=== PATIENT | female | born 1965 | race Caucasian/White ===

== ENCOUNTER 2024-03-16 09:46 | Outpatient (OUT) | payer OTHER, SELFPAY ==
[2024-03-16 10:06] LABS: Basophils Absolute Auto 0.1 10^3/uL (0.0-0.1); Basophils Percent Auto 0.8 % (0.2-2.0); Eosinophils Absolute Auto 0.2 10^3/uL (0.0-0.7); Eosinophils Percent Auto 3.3 % (0.9-7.0); Hematocrit 40.6 % (36.0-48.0); Hemoglobin 13.7 g/dL (12.0-16.0); Immature Granulocytes Abs Auto 0.01 10^3/uL (0.00-0.03); Immature Granulocytes Pct Auto 0.2 % (0.0-0.5); Lymphocytes Absolute Auto 2.3 10^3/uL (1.2-3.8); Lymphocytes Percent Auto 35.7 % (20.5-60.0); Mean Corpuscular HGB Conc 33.7 g/dL (29.9-35.2); Mean Corpuscular Hemoglobin 30.4 pg (26.7-34.0); Mean Corpuscular Volume 90.2 fL (81.0-99.0); Monocytes Absolute Auto 0.5 10^3/uL (0.3-0.8); Monocytes Percent Auto 8.4 % (1.7-12.0); Neutrophils Absolute Auto 3.3 10^3/uL (1.4-6.5); Neutrophils Percent Auto 51.6 % (43.0-75.0); Platelet Count 249 10^3/uL (150-450); Red Cell Distribution Width 12.2 % (11.0-15.0); White Blood Count 6.3 10^3/uL (4.0-11.0)
== END 2024-03-16 09:47 | disposition home or self-care (01) ==
LOC: LAB 09:50
PROVIDERS: PCP Nurse Practitioner Family; Visit Provider Nurse Practitioner Family
DX: Z13.0 Encounter for screening for diseases of the blood and blood-forming organs and certain disorders involving the immune mechanism (principal)
CPT/HCPCS: 36415; 85025

== ENCOUNTER 2024-03-17 11:06 | Outpatient (OUT) | payer OTHER, SELFPAY ==
[2024-03-17 11:51] LABS: Alanine Aminotransferase 23 U/L (14-59); Albumin Globulin Ratio 0.9; Albumin Level 3.2 g/dL (3.4-5.0); Alkaline Phosphatase 104 U/L (46-116); Anion Gap 8.9; Aspartate Amino Transferase 16 U/L (15-37); BUN Creatinine Ratio 19.1; Bilirubin Total 0.7 mg/dL (0.2-1.0); Calcium 9.2 mg/dL (8.5-10.1); Carbon Dioxide 29.2 mmol/L (21.0-32.0); Chloride 107 mmol/L (98-107); Chol HDL Ratio 4.1; Cholesterol 211 mg/dL (<=200); Estimated GFR (African America >60 (>=60); Estimated GFR (Non-African Ame >60 (>=60); Globulin 3.7 g/dL; Glucose 87 mg/dL (74-106); HDL Cholesterol 51 mg/dL (40-60); Potassium 4.1 mmol/L (3.5-5.1); Sodium 141 mmol/L (136-145); Total Protein 6.9 g/dL (6.4-8.2); Triglycerides 47 mg/dL (<=150); VLDL CHOLESTEROL 9.4 mg/dL
== END 2024-03-17 11:07 | disposition home or self-care (01) ==
LOC: LAB 11:06
PROVIDERS: PCP Nurse Practitioner Family; Visit Provider Nurse Practitioner Family
DX: Z51.81 Encounter for therapeutic drug level monitoring (principal); Z13.228 Encounter for screening for other metabolic disorders; Z13.220 Encounter for screening for lipoid disorders
CPT/HCPCS: 36415; 80053; 80061

== ENCOUNTER 2024-03-24 12:47 | Outpatient (OUT) | payer OTHER, SELFPAY ==
--- NOTE | 2024-03-24 12:49 | MM_ITS ---
Patient Name: SHERRIE FALK MR#: [id number] : 1965 Exam Date: 03/24/2024 Ordering Doctor: ZENAIDA CHAMBERS RADIOLOGY REPORT PROCEDURE: MM TOMOSYNTHESIS SCREENING BI COMPARISON: None. INDICATIONS: screening Calculator Name NCI Breast Cancer Risk Assessment Tool 5 Year Breast Cancer Risk 1.10% Lifetime Breast Cancer Risk 6.20% Personal Breast Cancer No Personal Ovarian Cancer No Treatments None Family Cancers None LOCATION: [facility] BREAST COMPOSITION: There are scattered areas of fibroglandular density. FINDINGS: DIAGNOSTIC CATEGORY 2--BENIGN FINDING: RIGHT BREAST: No significant suspicious finding. Scattered benign-appearing calcifications are present. LEFT BREAST: No significant suspicious finding. Scattered benign-appearing calcifications are present. RECOMMENDATIONS: ROUTINE MAMMOGRAM AND CLINICAL EVALUATION IN 12 MONTHS. PLEASE NOTE: A NORMAL MAMMOGRAM DOES NOT EXCLUDE THE POSSIBILITY OF BREAST CANCER. A CLINICALLY SUSPICIOUS PALPABLE LUMP SHOULD BE BIOPSIED. Dictated by: Jordi Peña M.D. on 04/07/2024 at 13:39 Approved by: Jordi Peña M.D. on 04/07/2024 at 13:42
--- OUTSIDE RECORDS SUMMARY | 2024-03-24 13:05 | XMS_ITS | CCD ---
Author Organization [facility] Care Team Providers Care Advertising Operations Manager Name Role Phone Will Forrester Primary Care Provider [phone] WILL FORRESTER Primary Care Unavailable STEVEN MARTINO Referring Unavailable STEVEN MARTINO Referring Unavailable KOSUZIE, WILL T Primary Care Unavailable MITZY, WILL T Primary Care Unavailable STEVEN MARTINO Admitting Unavailable STEVEN MARTINO Attending Unavailable VIANCA ROLDAN Attending Unavailable MITZY, WILL T Primary Care Unavailable STEVEN MARTINO Referring Unavailable KOEHL, WILL T Primary Care Unavailable Mitzy CHAUDHRY, Will Primary Care Provider Mitzy CHAUDHRY, Will Primary Care Provider Mitzy CHAUDHRY, Will Primary Care Provider [phone] VITA ALMONTE Referring Unavailable KOEH, WILL T Primary Care Unavailable SIM WELLER Referring Unavailable KOEHL, WILL T Primary Care Unavailable Allergies Allergy Classification Reported Allergen(s) Allergy Type Date of Onset Reaction(s) Facility Sulfamethoxazole / Trimethoprim (2 sources) Sulfamethoxazole / Trimethoprim Drug Allergy 01-26-20 [facility] [employer] (7 sources) Sulfamethoxazole / Trimethoprim Drug Allergy 01-26-20 [facility] [employer] Work Phone: (5 sources) Acetaminophen / oxyCODONE Drug Allergy 07-25-20 [employer] Work Phone: (1 source) Sulfamethoxazole Drug Allergy 03-13-20 24 [facility] (1 source) Trimethoprim Drug Allergy 03-13-20 [facility] NEGATED: Highlighted row has been ruled out! (5 sources) Other Propensity to adverse reactions 07-25-20 [facility] Medications Current Medications Medication Drug Class(es) Dates Sig (Normalized) Sig (Original) Acetaminophen / HYDROcodone (1 source) Opioid Agonist Start: 02-09-2021 End: 02-09-2021 HYDROcodone-aceta minophen (NORCO) 5-325 MG per tablet 1 tablet acetaminophen 325 mg / oxyCODONE hydrochloride 5 mg oral tablet (6 sources) Opioid Agonist take 1 tablet by mouth twice daily as needed for pain oxyCODONE-acetami nophen (PERCOCET) 5-325 MG per tablet Take 1 tablet by mouth 2 times daily as needed for Pain. 0 Active benzonatate 200 mg oral capsule (2 sources) Non-narcotic Antitussive Start: 09-30-2022 End: 10-07-2022 take 1 capsule by mouth three times daily as needed for cough benzonatate (TESSALON) 200 MG capsule Indications: Viral URI Take 1 capsule by mouth 3 times daily as needed for Cough 30 capsule 0 09/30/2022 10/07/2022 Active Start: 12-03-2021 End: 12-10-2021 take 1 capsule by mouth three times daily as needed for cough benzonatate (TESSALON) 200 MG capsule Indications: Acute URI Take 1 capsule by mouth 3 times daily as needed for Cough 30 capsule 0 12/03/2021 12/10/2021 Active brompheniramine maleate 0.4 mg/ml / dextromethorphan hydrobromide 2 mg/ml / pseudoephedrine hydrochloride 6 mg/ml oral solution (1 source) alpha-Adrenergic Agonist, Uncompetitive W-dtjgga-F-aspartate Receptor Antagonist, Sigma-1 Agonist Start: 03-26-2022 End: 03-31-2022 take 10 mL by mouth four times daily as needed for cough rfcmcfkdqlnhses-dpyzszklbatulsr-QG 2-30-10 MG/5ML syrup Indications: Cough Take 10 mLs by mouth 4 times daily as needed for Cough 200 mL 0 03/26/2022 03/31/2022 Active calcium chloride 0.0014 meq/ml / potassium chloride 0.004 meq/ml / sodium chloride 0.103 meq/ml / sodium lactate 0.028 meq/ml injectable solution (1 source) Start: 02-10-2021 lactated ringers infusion Start: 02-10-2021 lactated ringe rs infusion cefdinir 300 mg oral capsule (1 source) Cephalosporin Antibacterial Start: 03-13-2024 take 300 mg by mouth twice daily Cefdinir Active 300 MG PO Twice daily 14 March 13, 2024 12:00am cephalexin 500 mg oral capsule (3 sources) Cephalosporin Antibacterial Start: 02-18-2023 End: 02-23-2023 take 1 capsule by mouth twice daily cephALEXin (KEFLEX) 500 MG capsule Indications: UTI symptoms Take 1 capsule by mouth 2 times daily for 5 days 10 capsule 0 02/18/2023 02/23/2023 Active Start: 04-22-2022 End: 04-29-2022 take 1 capsule by mouth twice daily cephALEXin (KEFLEX) 500 MG capsule Indications: Acute cystitis without hematuria Take 1 capsule by mouth 2 times daily for 7 days 14 capsule 0 04/22/2022 04/29/2022 Active Start: 03-26-2022 End: 04-05-2022 take 1 capsule by mouth twice daily cephALEXin (KEFLEX) 500 MG capsule Indications: Acute bacterial sinusitis Take 1 capsule by mouth 2 times daily for 10 days 20 capsule 0 03/26/2022 04/05/2022 Active ciclopirox 80 mg/ml topical solution (1 source) Start: 03-13-2024 Ciclopirox (Ciclodan) 8 % solution Active 1 APPLIC TOPICAL Daily at bedtime 6.6 March 13, 2024 12:00am cyclobenzaprine hydrochloride 10 mg oral tablet (6 sources) Muscle Relaxant take 5 mg by mouth twice daily as needed for muscle spasms cyclobenzaprine (FLEXERIL) 10 MG tablet Take 5 mg by mouth 2 times daily as needed for Muscle spasms 0 Active 2 ml fentaNYL 0.05 mg/ml injection (2 sources) Opioid Agonist Start: 02-09-2021 fentaNYL (SUBLIMAZE) injection 25 mcg Start: 02-09-2021 fentaNYL (SUBL IMAZE) injection 50 mcg 10 ml lidocaine hydrochloride 10 mg/ml injection (1 source) Antiarrhythmic, Amide Local Anesthetic Start: 02-10-2021 End: 02-10-2021 lidocaine PF 1 % injection 1 mL ondansetron 4 mg oral tablet (9 sources) Serotonin-3 Receptor Antagonist Start: 04-22-2022 End: 04-27-2022 take 1 tablet by mouth every eight hours as needed for nausea ondansetron (ZOFRAN ODT) 4 MG disintegrating tablet Indications: Nausea Take 1 tablet by mouth every 8 hours as needed for Nausea or Vomiting 15 tablet 0 04/22/2022 04/27/2022 Active Start: 12-03-2021 take 1 tablet by ian th three times daily as needed for nausea ondansetron (ZOFRAN) 4 MG tablet Indications: Viral URI Take 1 tablet by mouth 3 times daily as needed for Nausea or Vomiting 15 tablet 0 09/30/2022 Active Start: 02-09-2021 End: 02-09-2021 ondansetron (ZOFRAN) injecti on 4 mg predniSONE 20 mg oral tablet (1 source) Start: 12-03-2021 End: 12-08-2021 take 2 tablets by mouth once daily predniSONE (DELTASONE) 20 MG tablet Indications: Acute URI Take 2 tablets by mouth daily for 5 days 10 tablet 0 12/03/2021 12/08/2021 Active 3 ml sodium chloride 9 mg/ml injection (2 sources) Start: 02-09-2021 sodium chlorid e flush 0.9 % injection 10 mL terbinafine 250 mg oral tablet (6 sources) Allylamine Antifungal Start: 01-22-2021 take 1 tablet by mouth once daily terbinafine (LAMISIL) 250 MG tablet Take 1 tablet by mouth daily 0 01/22/2021 Active Completed/Discontinued Medications Medication Drug Class(es) Dates Sig (Normalized) Sig (Original) apixaban 5 mg oral tablet (7 sources) Factor Xa Inhibitor Start: 03-23-2021 End: 03-23-2021 apixaban (ELIQUIS) tablet 10 mg Start: 03-23-2021 apixaban start er pack (ELIQUIS DVT/PE STARTER PACK) 5 MG TBPK tablet Take 1 tablet by mouth See Admin Instructions 74 tablet 0 03/23/2021 Active ibuprofen 200 mg oral tablet (1 source) Nonsteroidal Anti-inflammatory Drug Start: 02-09-2021 End: 02-09-2021 ibuprofen (ADVIL;MOTRIN) tablet 400 mg Problems Active Problems Problem Classification Problem Date Documented Date Episodic/Chronic Genitourinary symptoms and ill-defined conditions (1 source) Increased frequency of urination; Translations: [Frequency of micturition] Episodic Headache; including migraine (2 sources) Migraine without aura, not refractory ; Translations: [Migraine without aura, not intractable, without status migrainosus] Onset: 09-09-2017 09-30-2022 Chronic Mycoses (2 sources) Onychomycosis; Translations: [Tinea unguium] 03-13-2024 Episodic Other aftercare (5 sources) Patient encounter status; Translations: [Encounter for therapeutic drug level monitoring] 03-13-2024 Episodic Other aftercare (1 source) Encounter for therapeutic drug level monitoring; Translations: [Encounter for therapeutic drug monitoring] 03-13-2024 Episodic Other female genital disorders (1 source) Vaginal discharge; Translations: [Other specified noninflammatory disorders of vagina] Episodic Other nutritional; endocrine; and metabolic disorders (2 sources) Obesity; Translations: [Other obesity due to excess calories] Onset: 09-30-2022 09-30-2022 Chronic Other screening for suspected conditions (not mental disorders or infectious disease) (4 sources) Encounter for other screening for malignant neoplasm of breast; Translations: [Breast screening, unspecified] 03-13-2024 Episodic Other upper respiratory infections (2 sources) Maxillary sinusitis; Translations: [Chronic maxillary sinusitis] 03-13-2024 Chronic Spondylosis; intervertebral disc disorders; other back problems (4 sources) Degeneration of lumbar intervertebral disc; Translations: [Other intervertebral disc degeneration, lumbar region] Onset: 09-30-2022 09-30-2022 Chronic Spondylosis; intervertebral disc disorders; other back problems (2 sources) Chronic back pain ; Translations: [Dorsalgia, unspecified] 03-13-2024 Episodic Unclassified (1 source) Patient encounter status; Translations: [Preop testing] Urinary tract infections (3 sources) Acute cystitis; Translations: [Acute cystitis without hematuria] Episodic Varicose veins of lower extremity (2 sources) Pain co-occurrent and due to varicose veins of left leg; Translations: [Varicose veins of left lower extremity with pain] Onset: 02-09-2021 02-09-2021 Past or Other Problems Problem Classification Problem Date Documented Da te Episodic/Chronic Calculus of urinary tract (2 sources) Kidney stone; Translations: [Calculus of kidney] Onset: 05-16-2018 09-30-2022 Episodic Conditions associated with dizziness or vertigo (2 sources) Benign paroxysmal positional vertigo; Translations: [Benign paroxysmal vertigo, unspecified ear] Onset: 07-26-2017 09-30-2022 Episodic Other diseases of veins and lymphatics (10 sources) Venous insufficiency of leg; Translations: [Venous insufficiency (chronic) (peripheral)] Onset: 02-09-2021 02-09-2021 Episodic Other female genital disorders (1 source) Other specified noninflammatory disorders of vagina; Translations: [Other specified noninflammatory disorders of vagina] Onset: 02-18-2023 Episodic Other skin disorders (2 sources) Callosity; Translations: [Corns and callosities] Onset: 12-24-2016 09-30-2022 Episodic Other skin disorders (2 sources) Disorder of skin and/or subcutaneous tissue; Translations: [Disorder of the skin and subcutaneous tissue, unspecified] Onset: 01-25-2016 09-30-2022 Episodic Other upper respiratory infections (3 sources) Acute upper respiratory infection; Translations: [Acute upper respiratory infection, unspecified] Onset: 09-30-2022 Episodic Phlebitis; thrombophlebitis and thromboembolism (3 sources) Acute deep venous thrombosis of popliteal vein of left leg; Translations: [Acute embolism and thrombosis of left popliteal vein] Onset: 02-20-2016 Episodic Skin and subcutaneous tissue infections (4 sources) Cellulitis and abscess of lower leg; Translations: [Cutaneous abscess of limb, unspecified] Onset: 10-14-2017 09-30-2022 Episodic Varicose veins of lower extremity (8 sources) Pain co-occurrent and due to varicose veins of left leg; Translations: [Varicose veins of left lower extremity with pain] Onset: 02-09-2021 02-09-2021 Episodic Results Test Name Value Interpretation Reference Range Facil ity Cult,Urineon 02-20-2023 Cult,Urine Specimen Description .CLEAN CATCH URINE Culture NO SIGNIFICANT GROWTH Report Status FINAL 02/20/[address] [facility] Comment on above: Performed By: #### U #### [facility] [employer] [address] [place] [address] [id number] Entry Processor: Crow Alford MD Vaginitis DNA Probeon 2022 Tiffanie Negative Normal NEG [facility] Comment on above: Result Comment: for Tiffanie sp. Method of testing is a DNA probe intended for detection and identification of Tiffanie species, Gardnerella vaginalis, and Trichomonas vaginalis nucleic acid in vaginal fluid specimens from patients with symptoms of vaginitis/vaginosis. Performed By: #### V AGP #### [address] [address] Entry Processor: Crow Alford MD Gardnerella Negative Normal NEG [facility] Comment on above: Result Comment: for Gardnerella vaginalis Performed By: #### V AGP #### [address] [address] Entry Processor: Crow Alford MD Trichomonas Negative Normal NEG [facility] Comment on above: Result Comment: for Trichomonas Vaginalis Performed By: #### V AGP #### [address] [address] Entry Processor: Crow Alford MD Vaginitis DNA Probeon 2022 Source .VAGINAL SWAB Normal [facility] Comment on above: Performed By: #### V AGP #### [address] [address] Entry Processor: Crow Alford MD [id number] 10-01-2022 SARS-CoV-2 (COVID-19) RNA FARHAT+probe Ql (Unsp spec) Normal [facility] Comment on above: Performed By: #### C OVID #### [address] [address] Entry Processor: Crow Alford MD SARS-CoV-2 (COVID-19) RNA FARHAT+probe Ql (Unsp spec) Not detected Normal NOTDET [facility] Comment on above: Result Comment: The specimen is NEGATIVE for SARS-CoV-2, the novel coronavirus associated with COVID-19. A negative result does not rule out COVID-19. Mathew SARS-CoV-2 for use on the [employer]w [employer]/8800 Systems is a real-time RT-PCR test intended for the qualitative detection of nucleic acids from SARS-CoV-2 in clinician-collected nasal, nasopharyngeal, and oropharyngeal swab specimens from individuals who meet COVID-19 clinical and/or epidemiological criteria. Mathew SARS-CoV-2 is for use only under Emergency Use Authorization (EUA) in laboratories certified under Clinical Laboratory Improvement Amendments of 1988 (CLIA), 42 U.S.C. ?263a, that meet requirements to perform high or moderate complexity tests. An individual without symptoms of COVID-19 and who is not shedding SARS-CoV-2 virus would expect to have a negative (not detected) result in this assay. Fact sheet for Healthcare Providers: https://www.fda.gov/media/114892/download Fact sheet for Patients: https://www.fda.gov/media/017198/download METHODOLOGY: RT-PCR Performed By: #### C OVID #### [address] [address] Entry Processor: Crow Alford MD [id number] 09-30-2022 SARS-CoV-2 (COVID-19) RNA FARHAT+probe Ql (Unsp spec) .NASOPHARYNGEAL SWAB Normal [facility] Comment on above: Performed By: #### C OVID #### [address] [address] Entry Processor: Crow Alford MD VL Lower Extremity Venous Le ftOrdered By: Steven Martino on 03-23-2021 Rashaun, Mhpn Incoming Cardio Results From [facility] - 03/23/2021 7:12 PM EDT [facility] Vascular Lower Extremities DVT Study Procedure Patient Name TABBERT Date of Study 03/23/2021 JESSICA L Date of 1965 Gender Female Age 55 year(s) Race Room Number OPT Corporate ID # [id number] Patient MR # [id number] Video Arcade Manager Kimberly Conklin Interpreting Physician Steven Martino Referring Nurse Referring Physician STEVEN MARTINO, * Practitioner Procedure Type of Study: Veins: Lower Extremities DVT Study, Venous Scan Lower Left. Indications for Study:Post-op venous closure. Patient Status:Out Patient. Technical Quality:Good visualization. - Critical Result:Called Dr. Martino's office: patient taken to the ER.. Conclusions Summary Acute deep vein thrombosis of the left leg involving the popliteal veins. Successful venous closure of the great saphenous vein of the left leg. Signature Electronically signed by Steven Martino([facility] physician) on 03/23/2021 07:11 PM Left Impression: The left popliteal vein is non compressible with no flow noted. F/U : Ablation of the left greater saphenous vein. The common femoral, femoral, tibials and small saphenous veins are compressible with normal doppler responses. Velocities are measured in cm/s ; Diameters are measured in cm Left Lower Extremities DVT Study Measurements Left 2D Measurements + +------ ----+ +- --------- + !Location !Visualized!Compressib ility!Thrombosis! + +------ ----+ +- --------- + !Common Femoral !Yes !Yes !None ! + +------ ----+ +- --------- + !Prox Femoral !Yes !Yes !None ! + +------ ----+ +- --------- + !Mid Femoral !Yes !Yes !None ! + +------ ----+ +- --------- + !Dist Femoral !Yes !Yes !None ! + +------ ----+ +- --------- + !Deep Femoral !Yes !Yes !None ! + +------ ----+ +- --------- + !Popliteal !Yes !No !Acute ! + +------ ----+ +- --------- + !Sapheno Femoral Junction !Yes !Yes !None ! + +------ ----+ +- --------- + !PTV !Yes !Yes !None ! + +------ ----+ +- --------- + !Peroneal !Yes !Yes !None ! + +------ ----+ +- --------- + !Gastroc !Yes !Yes !None ! + +------ ----+ +- --------- + !SSV !Yes !Yes !None ! + +------ ----+ +- --------- + Left Doppler Measurements + ------+------+------+- --------- + !Location !Signal!Reflux!Reflux (msec) ! + ------+------+------+- --------- + !Common Femoral !Phasic! ! ! + ------+------+------+- --------- + !Prox Femoral !Phasic! ! ! + ------+------+------+- --------- + !Popliteal !Absent! ! ! + ------+------+------+- --------- + [employer] Work Phone: OPERATIVE REPORTon OPERATIVE REPORT [address] [phone] OPERATIVE REPORT PATIENT NAME: JESSICA COTTRELL : 1965 [facility] REC NO: [id number] ROOM: ACCOUNT NO: [id number] ADMIT DATE: 02/09/2021 PROVIDER: Steven Martino MD DATE OF PROCEDURE: 02/09/2021 PREOPERATIVE DIAGNOSES: 1. Symptomatic painful left lower extremity varicose veins with associated thrombophlebitis. 2. Left lower extremity incompetent perforators. 3. Left greater saphenous vein incompetence. POSTOPERATIVE DIAGNOSES: 1. Symptomatic painful left lower extremity varicose veins with associated thrombophlebitis. 2. Left lower extremity incompetent perforators. 3. Left greater saphenous vein incompetence. PROCEDURE: 1. Endovenous ablation of left greater saphenous vein with [employer] ClosureFast system (12 cycles). 2. Ligation of left lower extremity incompetent perforators. 3. Ultrasound imaging, left greater saphenous vein. SURGEON: Steven Martino MD ANESTHESIA: MAC. ESTIMATED BLOOD LOSS: Minimal. COMPLICATIONS: None. OPERATIVE INDICATIONS: The patient is a 55-year-old white female who presents with venous varicosities on the left leg and previous episodes of superficial thrombophlebitis. Venous duplex demonstrates significant reflux involving the left greater saphenous vein along with incompetent perforators along the lower leg and medial calf region. At this time, she is being taken to the operating room for elective endovenous ablation of the left greater saphenous vein with ligation of incompetent perforators. TECHNIQUE: After informed consent had been obtained, the patient was brought to the operating room and placed in supine position and left leg was prepped and draped in the usual sterile fashion. Ultrasound imaging was carried out of the greater saphenous vein from the saphenofemoral junction to the ankle level. This demonstrated patency of the greater saphenous vein. The lower leg was anesthetized with 1% Xylocaine. Using micropuncture technique, the greater saphenous vein was isolated and a 7-Lithuanian sheath was placed. Med[employer]onic ClosureFast catheter was advanced to the saphenofemoral junction and withdrawn approximately 4-5 cm. Tumescent anesthetic was then injected along the course of the greater saphenous vein under direct ultrasound imaging. Endovenous ablation of the greater saphenous vein was then carried out using the Medtronic ClosureFast system for a total of 12 cycles. Post imaging demonstrated successful closure of the greater saphenous vein with preserved patency of the saphenofemoral junction and deep venous system. Next, areas of previously marked incompetent perforators were anesthetized with 1% Xylocaine and small incisions were made. Multiple perforators were ligated and varicosities excised with the stumps being tied with a 3-0 Vicryl and divided. Once all the perforators had been ligated and varicosities removed, the wounds were irrigated with normal saline and the skin incisions reapproximated using interrupted 4-0 Monocryl subcuticular suture. Mastisol and Steri-Strips were applied followed by a sterile Kerlix and Coban dressing. The patient tolerated the procedure well and was transferred to the recovery room in satisfactory condition. Sponge and instrument counts were correct at the conclusion of the operation. A total of 5 phlebectomy sites were present. STEVEN MARTINO MD TORREY/[email or web address] Doc#: [id number] CC: Steven Matrino MD Family Physician Normal [facility] [id number] 02-06-2021 SARS-CoV-2 (COVID-19) RNA FARHAT+probe Ql (Unsp spec) Normal [facility] Comment on above: Performed By: #### C OVID #### [facility] [address] [place] [address] Entry Processor: Raciel Osullivan MD [facility] [employer] [facility] [place] [address] Entry Processor: Crow Alford MD SARS-CoV-2 (COVID-19) RNA FARHAT+probe Ql (Unsp spec) Not detected Normal [facility] Comment on above: Result Comment: The specimen is NEGATIVE for SARS-CoV-2, the novel coronavirus associated with COVID-19. A negative result does not rule out COVID-19. Mathew SARS-CoV-2 for use on the [employer]/8800 Systems is a real-time RT-PCR test intended for the qualitative detection of nucleic acids from SARS-CoV-2 in clinician-collected nasal, nasopharyngeal, and oropharyngeal swab specimens from individuals who meet COVID-19 clinical and/or epidemiological criteria. Mathew SARS-CoV-2 is for use only under Emergency Use Authorization (EUA) in laboratories certified under Clinical Laboratory Improvement Amendments of 1988 (CLIA), 42 U.S.C. ?263a, that meet requirements to perform high or moderate complexity tests. An individual without symptoms of COVID-19 and who is not shedding SARS-CoV-2 virus would expect to have a negative (not detected) result in this assay. Fact sheet for Healthcare Providers: https://www.fda.gov/media/771925/download Fact sheet for Patients: https://www.fda.gov/media/604110/download METHODOLOGY: RT-PCR Performed By: #### C OVID #### [facility] [address] [place], [place] [id number] Entry Processor: Raciel Osullivan MD [address] [id number] Entry Processor: Crow Alford MD [id number] 02-01-2021 SARS-CoV-2 (COVID-19) RNA FARHAT+probe Ql (Unsp spec) .NASOPHARYNGEAL SWAB Normal [facility] Comment on above: Performed By: #### C OVID #### [facility] [address] [place], [place] [id number] Entry Processor: Raciel Osullivan MD [address] [address] Entry Processor: Crow Alford MD Basic Metabolic Profon 01-25 (cont.) [facility] Comment on above: Result Comment: Aver age GFR for 50-59 years old: 93 mL/min/1.73sq m Chronic Kidney Disease: <60 mL/min/1.73sq m Kidney failure: <15 mL/min/1.73sq m eGFR calculated using average adult body mass. Additional eGFR calculator available at: http://www.sougou/multiple_crcl_2012.htm Performed By: #### MIGUEL ÁNGEL ORTIZ, PT #### [facility] [address] [facility] [place] [address] Entry Processor: Raciel Osullivan MD Anion gap [Moles/Vol] 8 mmol/L Low 9-17 [facility] Comment on above: Performed By: #### MIGUEL ÁNGEL ORTIZ, PT #### [facility] [address] [facility] [address] Entry Processor: Raciel Osullivan MD BUN/CRE Ratio 13 Normal 9-20 [facility] Comment on above: Performed By: #### MIGUEL ÁNGEL ORTIZ, PT #### [facility] [address] [facility] [address] Entry Processor: Raciel Osullivan MD Calcium [Mass/Vol] 9.3 mg/dL Normal 8.6-10.4 [facility] Comment on above: Performed By: #### MIGUEL ÁNGEL ORTIZ, PT #### [facility] [address] [facility] [address] Entry Processor: Raciel Osullivan MD Chloride [Moles/Vol] 105 mmol/L Normal 98-107 [facility] Comment on above: Performed By: #### MIGUEL ÁNGEL ORTIZ, PT #### [facility] [address] [facility] [address] Entry Processor: Raciel Osullivan MD CO2 [Moles/Vol] 30 mmol/L Normal 20-31 [facility] Comment on above: Performed By: #### C BETO BMP, PT #### [facility] [address] [place] [address] Entry Processor: Raciel Osullivan MD Creatinine [Mass/Vol] 0.83 mg/dL Normal 0.50-0.90 [facility] Comment on above: Performed By: #### C BETO BMP, PT #### [facility] [address] [place] [address] Entry Processor: Raciel Osullivan MD GFR, Amer >60 Normal >60 [facility] Comment on above: Performed By: #### C MIGUEL ÁNGEL PÉREZ, PT #### [facility] [address] [place] [address] Entry Processor: Raciel Osullivan MD GFR,non Amer >60 Normal >60 [facility] Comment on above: Performed By: #### C BETO BMP, PT #### [facility] [address] [facility] [place] [address] Entry Processor: Raciel Osullivan MD Glucose [Mass/Vol] 89 mg/dL Normal 70-99 [facility] Comment on above: Performed By: #### C MIGUEL ÁNGEL PÉREZ, PT #### [facility] [facility] [place] [address] Entry Processor: Raciel Osullivan MD Potassium [Moles/Vol] 5.0 mmol/L Normal 3.7-5.3 [facility] Comment on above: Performed By: #### C MIGUEL ÁNGEL PÉREZ, PT #### [facility] [address] [place] [address] Entry Processor: Raciel Osullivan MD Sodium [Moles/Vol] 143 mmol/L Normal 135-144 [facility] Comment on above: Performed By: #### C MIGUEL ÁNGEL PÉREZ, PT #### [facility] [address] [place] [address] Entry Processor: Raciel Osullivan MD Urea nitrogen [Mass/Vol] 11 mg/dL Normal 6-20 [facility] Comment on above: Performed By: #### C MIGUEL ÁNGEL PÉREZ, PT #### [facility] [address] [place] [address] Entry Processor: Raciel Osullivan MD Staging: NOT REPORTED Normal [facility] Comment on above: Performed By: #### C MIGUEL ÁNGEL PÉREZ, PT #### [facility] [address] [place] [address] Entry Processor: Raciel Osullivan MD CBCon 01-25-2021 Erythrocyte distribution width (RBC) [Ratio] 12.6 % Normal 11.8-14.4 [facility] Comment on above: Performed By: #### C MIGUEL ÁNGEL PÉREZ, PT #### [facility] [address] [place] [address] Entry Processor: Raciel Osullivan MD Hematocrit (Bld) [Volume fraction] 43.1 % Normal 36.3-47.1 [facility] Comment on above: Performed By: #### C MIGUEL ÁNGEL PÉREZ, PT #### [facility] [address] [facility] [place] [address] Entry Processor: Raciel Osullivan MD Hemoglobin (Bld) [Mass/Vol] 14.2 g/dL Normal 11.9-15.1 [facility] Comment on above: Performed By: #### C MIGUEL ÁNGEL PÉREZ, PT #### [facility] [place] [address] Entry Processor: Raciel Osullivan MD MCH (RBC) [Entitic mass] 30.5 pg Normal 25.2-33.5 [facility] Comment on above: Performed By: #### C MIGUEL ÁNGEL PÉREZ, PT #### [facility] [address] [place] [address] Entry Processor: Raciel Osullivan MD MCHC (RBC) [Mass/Vol] 32.9 g/dL Normal 28.4-34.8 [facility] Comment on above: Performed By: #### C MIGUEL ÁNGEL PÉREZ, PT #### [facility] [place] [address] Entry Processor: Raciel Osullivan MD MCV (RBC) [Entitic vol] 92.5 fL Normal 82.6-102.9 [facility] Comment on above: Performed By: #### C MIGUEL ÁNGEL PÉREZ, PT #### [facility] [address] [place], [place] [address]ia [facility] [place] [address] Entry Processor: Raciel Osullivan MD NRBC Automated 0.0 per 100 WBC Normal 0.0 [facility] Comment on above: Performed By: #### C MIGUEL ÁNGEL PÉREZ, PT #### [facility] [address] [place], [place] [address]ia [facility] [place] [address] Entry Processor: Raciel Osullivan MD Platelet mean volume (Bld) [Entitic vol] 9.4 fL Normal 8.1-13.5 [facility] Comment on above: Performed By: #### C MIGUEL ÁNGEL PÉREZ, PT #### [facility] [facility] [place] [address] Entry Processor: Raciel Osullivan MD Platelets (Bld) [#/Vol] 244 10*3/uL Normal 138-453 [facility] Comment on above: Performed By: #### C MIGUEL ÁNGEL PÉREZ, PT #### [facility] [place] [address] Entry Processor: Raciel Osullivan MD RBC (Bld) [#/Vol] 4.66 10*6/uL Normal 3.95-5.11 [facility] Comment on above: Performed By: #### C BETO BMP, PT #### [facility] [address] [place] [address] Entry Processor: Raciel Osullivan MD WBC (Bld) [#/Vol] 5.5 10*3/uL Normal 3.5-11.3 [facility] Comment on above: Performed By: #### C BETO BMP, PT #### [facility] [address] [place] [address] Entry Processor: Raciel Osullivan MD PTon 01-25-2021 INR Coag (PPP) [Relative time] 1.0 {INR} Normal [facility] Comment on above: Result Comment: Non-therapeutic Range: INR = 0.9-1.2 Therapeutic Range: Moderate Anticoagulant Intensity: INR = 2.0-3.0 High Anticoagulant Intensity: INR = 2.5-3.5 Performed By: #### C MIGUEL ÁNGEL PÉREZ, PT #### [facility] [address] [place] [address] Entry Processor: Raciel Osullivan MD PT Coag (PPP) [Time] 12.6 s Normal 11.5-14.2 [facility] Comment on above: Performed By: #### C BETO BMP, PT #### [facility] [address] [place] [address] Entry Processor: Raciel Osullivan MD Vital Signs Date Time Vital Sign Value Performing Clinician Facility 03-13-2024 09:57-0400 Body height 167.64 cm [facility] 03-13-2024 09:57-0400 Body mass index (BMI) [Ratio] 33.9 kg/m2 [facility] 03-13-2024 09:57-0400 Body weight 95.25 kg [facility] 03-13-2024 09:57-0400 Diastolic blood pressure 80 mm[Hg] [facility] 03-13-2024 09:57-0400 Heart rate 74 /min [facility] 03-13-2024 09:57-0400 SaO2% (BldA) [Mass fraction] 98 % [facility] 03-13-2024 09:57-0400 Systolic blood pressure 116 mm[Hg] [facility] 03-23-2021 16:24-0400 Body height 167.6 cm Vianca Roldan MD Work Phone: [employer] Work Phone: 03-23-2021 16:24-0400 Body mass index (BMI) [Ratio] 32.28 kg/m2 Vianca Roldan MD Work Phone: [employer] Work Phone: 03-23-2021 16:24-0400 Body temperature 98.29 [degF] Vianca Roldan MD Work Phone: [employer] Work Phone: 03-23-2021 16:24-0400 Body weight 90.72 kg Vianca Roldan MD Work Phone: [employer] Work Phone: 03-23-2021 16:24-0400 Diastolic blood pressure 74 mm[Hg] Vianca Roldan MD Work Phone: [employer] Work Phone: 03-23-2021 16:24-0400 Heart rate 86 /min Vianca Roldan MD Work Phone: [employer] Work Phone: 03-23-2021 16:24-0400 Respiratory rate 16 /min Vianca Roldan MD Work Phone: [employer] Work Phone: 03-23-2021 16:24-0400 SaO2% (BldA) [Mass fraction] 98 % Vianca Roldan MD Work Phone: [facility] Work Phone: 03-23-2021 16:24-0400 Systolic blood pressure 140 mm[Hg] Vianca Roldan MD Work Phone: [facility] Work Phone: 02-09-2021 12:30-0400 Body Temperature 98.29 [degF] Steven Martino [facility] Work Phone: 02-09-2021 12:30-0400 BP Diastolic 69 mm[Hg] Steven Martino [facility] Work Phone: 02-09-2021 12:30-0400 BP Systolic 121 mm[Hg] Steven Martino [facility] Work Phone: 02-09-2021 12:30-0400 Pulse (Heart Rate) 56 /min Steven Martino [facility] Work Phone: 02-09-2021 12:30-0400 [facility]ulse [facility] 99 [facility] 02-09-2021 12:30-0400 Respiratory Rate 16 /min Steven Martino [facility] Work Phone: 02-09-2021 07:45-0400 BMI (Body Mass Index) 32.44 kg/m2 [facility] Work Phone: 02-09-2021 07:45-0400 Body [facility].17 [facility]: 02-09-2021 07:45-0400 Height 167.6 [facility]: Encounters Encounter Date Encounter Type Care Provider Facility Start: 03-13-2024 End: 03-13-2024 ambulatory [facility] Work Phone: Start: 03-13-2024 End: 03-13-2024 Patient encounter procedure [facility] Physician [facility] Work Phone: Start: 02-18-2023 End: 02-19-2023 ambulatory VITA ALMONTE [facility] Start: 02-18-2023 End: 02-18-2023 Subsequent hospital visit by physician Will Forrester MD Work Phone: [facility] Comment on above: Vaginal discharge Start: 09-30-2022 End: 10-01-2022 ambulatory SIM WELLER [facility] Start: 09-30-2022 End: 09-30-2022 Subsequent hospital visit by physician Will Forrester MD Work Phone: [facility] Comment on above: Viral URI Start: 04-22-2022 End: 04-22-2022 Subsequent hospital visit by physician Will Forrester MD Work Phone: [facility] Comment on above: Acute cystitis witho ut hematuria Start: 03-26-2022 End: 03-26-2022 Subsequent hospital visit by physician Will Forrester MD Work Phone: [facility] Comment on above: Frequent urination Start: 12-03-2021 End: 12-03-2021 Subsequent hospital visit by physician Will Forrester MD Work Phone: [facility] Comment on above: Acute URI Start: 03-23-2021 End: 03-23-2021 Emergency department patient visit VIANCA ROLDAN [facility] Start: 03-23-2021 End: 03-23-2021 ambulatory WILL FORRESTER [facility] Start: 03-23-2021 End: 03-23-2021 Emergency department patient visit Vianca Roldan MD Work Phone: [facility] Comment on above: Acute deep vein thro mbosis (DVT) of popliteal vein of left lower extremity (HCC) (Primary Dx) Start: 03-23-2021 End: 03-23-2021 Subsequent hospital visit by physician [facility] Comment on above: Venous insufficiency of left leg (Primary Dx); Varicose veins of lower extremity with pain, left Start: 02-09-2021 End: 02-09-2021 ambulatory WILL FORRESTER [facility] Start: 02-09-2021 End: 02-09-2021 Subsequent hospital visit by physician Steven Martino Work Phone: [facility] Start: 02-05-2021 End: 02-06-2021 ambulatory [facility] Start: 02-05-2021 End: 02-05-2021 Subsequent hospital visit by physician Juice Covid Screening Schedule [facility] Comment on above: Preop testing (Prima ry Dx) Start: 01-25-2021 End: 01-30-2021 ambulatory [facility] Procedures Date Procedure Procedure Detail Performing Clinician Start: 03-23-2021 Dup-scan xtr veins unilateral/limited study Steven Martino MD Work Phone: Plan of Treatment Date Care Activity Detail Author Start: 10-17-2027 DTaP/Tdap/Td vaccine (2 - Td or Tdap) DTaP/Tdap/Td vaccine (2 - Td or Tdap) [facility] Start: 10-17-2027 DTaP/Tdap/Td vaccine (2 - Td) DTaP/Tdap/Td vaccine (2 - Td) [facility] Work Phone: Start: 06-18-2023 Influenza vaccination Flu vacc ine (Season Ended) [facility] Start: 12-03-2022 Depression Screen Depression Screen [facility] Start: 07-19-2022 Influenza vaccination Flu vacc ine (Season Ended) [facility] Start: 06-18-2022 Influenza vaccination Flu vaccine (# 1) [facility] Start: 10-02-2021 Screening for malign ant neoplasm of breast Breast cancer screen [facility] Start: 07-19-2021 Influenza vaccination [facility] [employer] Start: 02-09-2021 End: 02-09-2021 Hospital Encounter [facility] Comment on above: LEFT GREATER SAPHENO US VEIN ABLATION RADIOFREQUENCY ENDOSCOPIC Start: 01-31-2021 End: 01-31-2022 COVID-19 COVID-19 Lab Routine Preop testing Expected: 01/31/2021, Expires: 01/31/2022 [employer] Phone: Comment on above: Expected: 01/31/2021 , Expires: 01/31/2022 Start: 01-24-2021 Lipid panel Lipids [facility] [employer] Start: 07-19-2020 Influenza vaccination Flu vaccine (# 1) [employer] Phone: Start: 2014 Screening for malign ant neoplasm of breast Breast cancer screen [facility] [employer] Start: 2014 Screening for malign ant neoplasm of colon Colon cancer screen colonoscopy [employer] Phone: Start: 2014 Shingles Vaccine (1 of 2) Box gles Vaccine (1 of 2) [facility] [employer] Start: 2009 Screening for malign ant neoplasm of colon [facility] [employer] Start: 2004 Lipid panel [facility] Start: 1985 Screening for malign ant neoplasm of cervix Cervical cancer screen [employer] Phone: Start: 1982 Hepatitis C screening Hepatitis C [facility] Start: 1980 COVID-19 Vaccine (1) COVID-19 Vaccin e (1) [facility] [employer] Phone: Start: 1979 HIV screening HIV screen [facility] Start: 1976 Depression Screen Depression Screen [facility] Start: 1969 COVID-19 Vaccine (1) COVID-19 Vaccin e (1) [facility] [employer] Start: 1964 COVID-19 Vaccine (#1) COVID-19 Vacci ne (#1) [facility] Start: 1964 Hepatitis C screening Hepatitis C [facility] Comprehensive metabo lic 2000 panel - Serum or Plasma [facility] End: 02-01-2021 COVID-19 COVID-19 Lab Routine Preop testing 1 Occurrences starting 02/01/2021 until 02/01/2021 [employer] Phone: Comment on above: 1 Occurrences starti ng 02/01/2021 until 02/01/2021 COVID-19 COVID-19 Lab Rou elif Preop testing 02/05/2021 11:20 AM EDT [employer] Phone: End: 09-30-2022 COVID-19 [employer] Phone: Comment on above: 1 Occurrences starti ng 09/30/2022 until 09/30/2022 End: 03-26-2022 Culture, Urine [employer] Phone: Comment on above: 1 Occurrences starti ng 03/26/2022 until 03/26/2022 End: 04-22-2022 Culture, Urine [employer] Phone: Comment on above: 1 Occurrences starti ng 04/22/2022 until 04/22/2022 Oxygen therapy [[facility] Data Set] Initiate Oxygen Therapy Protocol Respiratory Care Routine Daily until discontinued starting 02/09/2021 [employer] Phone: Comment on above: Daily until disconti nued starting 02/09/2021 Phase I & II - meter ed glucose Phase I & II - metered glucose Point of Care Testing Routine As Needed until discontinued starting 02/09/2021 [employer] Phone: Comment on above: As Needed until disc ontinued starting 02/09/2021 End: 12-03-2021 Strep A DNA probe, amplification [employer] Work Phone: Comment on above: 1 Occurrences starti ng 12/03/2021 until 12/03/2021 End: 02-18-2023 Vaginitis DNA Probe [employer] Phone: Comment on above: 1 Occurrences starti ng 02/18/2023 until 02/18/2023 [facility] Immunizations Immunization Date Immunization Notes Care Provider Fa cilijuan luis 10-17-2017 tetanus toxoid, redu noah diphtheria toxoid, and acellular pertussis vaccine, adsorbed Will Forrester MD Work Phone: [employer] Phone: Payers Date Payer Category Payer Unknown [id number] 2020 Unknown [id number] 1964 Unknown [id number] 1964 Unknown [id number] 1964 Unknown [id number] 1964 Unknown [id number] 1964 Unknown [id number] 1964 Unknown [id number] 1964 Unknown [id number] Private Health Insurance [facility] [employer] [id number] Social History Date Type Detail Facility Start: 01-25-2021 End: 03-13-2024 Tobacco smoking status [facility] Former smoker [employer] Phone: Start: 11-18-1986 End: 11-18-1989 History of tobacco use Current smoker [employer] Phone: Start: 01-25-2021 End: 09-30-2022 Tobacco use and exposure Never used [employer] Phone: Start: 01-25-2021 End: 02-18-2023 Alcohol intake Lifetime non-drinker (finding) [employer] Phone: Start: 01-25-2021 End: 12-03-2021 History SDOH Alcohol Frequency 1 [employer] Phone: Start: 1965 Sex Assigned At Not on file M Angella Joy Phone: Exposure to SARS-CoV -2 (event) Not sure [employer] Phone: Start: 01-25-2021 End: 09-30-2022 Cigarettes smoked current (pack per day) - Reported 1 [employer] Phone: Start: 12-03-2021 History SDOH Financial 5 [employer] Phone: Start: 11-18-1986 End: 11-18-1989 History of tobacco use Cigarette Smoker [facility] [employer] Phone: Start: 1965 Sex Assigned At Female F [facility] Clinical Note 03-23-2021 Note Date & Type Note Facility 03-23-2021 Note [facility] Lower Extremities DVT Study Procedure Patient Name TABGISELLE Date of Study 03/23/2021 JESSICA Osullivan Date of 1965 Gender Female Age 55 year(s) Race Room Number OPT Corporate ID # [id number] Patient MR # [id number] Video Arc[employer] Manager Kimberly Conklin Interpreting Physician Steven Martino Referring Nurse Referring Physician STEVEN MARTINO, * Practitioner Procedure Type of Study: Veins: Lower Extremities DVT Study, Venous Scan Lower Left. Indications for Study:Post-op venous closure. Patient Status:Out Patient. Technical Quality:Good visualization. - Critical Result:Called Dr. Martino's office: patient taken to the ER.. Conclusions Summary Acute deep vein thrombosis of the left leg involving the popliteal veins. Successful venous closure of the great saphenous vein of the left leg. Signature Left Impression: The left popliteal vein is non compressible with no flow noted. F/U : Ablation of the left greater saphenous vein. The common femoral, femoral, tibials and small saphenous veins are compressible with normal doppler responses. Velocities are measured in cm/s ; Diameters are measured in cm Left Lower Extremities DVT Study Measurements Left 2D Measurements + +- ---------+ + + !Location !Visualized!Compressibility!Thrombosis! + +- ---------+ + + !Common Femoral !Yes !Yes !None ! + +- ---------+ + + !Prox Femoral !Yes !Yes !None ! + +- ---------+ + + !Mid Femoral !Yes !Yes !None ! + +- ---------+ + + !Dist Femoral !Yes !Yes !None ! + +- ---------+ + + !Deep Femoral !Yes !Yes !None ! + +- ---------+ + + !Popliteal !Yes !No !Acute ! + +- ---------+ + + !Sapheno Femoral Junction !Yes !Yes !None ! + +- ---------+ + + !PTV !Yes !Yes !None ! + +- ---------+ + + !Peroneal !Yes !Yes !None ! + +- ---------+ + + !Gastroc !Yes !Yes !None ! + +- ---------+ + + !SSV !Yes !Yes !None ! + +- ---------+ + + Left Doppler Measurements + +------+--- ---+ + !Location !Signal!Reflux!Reflux (msec) ! + +------+--- ---+ + !Common Femoral !Phasic! ! ! + +------+--- ---+ + !Prox Femoral !Phasic! ! ! + +------+--- ---+ + !Popliteal !Absent! ! ! + +------+--- ---+ + [employer] Phone: Hospital Discharge instructions 03-23-2021 InstructionsAttachments Note Date & Type Note Facility 03-23-2021 Hospital Discharg e instructions Vianca Roldan MD - 03/23/2021 As we discussed here in the emergency room please take the Eliquis as instructed. I recommend follow-up with Dr. Delgadillo at his earliest next appointment. If you do experience any chest pain or difficulty breathing I recommend prompt return to the emergency room although this is unlikely now that we have started proper therapy. The following attachments cannot be sent through Care Everywhere.DVT (Deep Vein Thrombosis) (Malagasy)documented in this encounter [employer] Phone: Evaluation note Note Date & Type Note Facility Evaluation note Diagnosis Acute deep vein thrombosis (DVT) of popliteal vein of left lower extremity (HCC)- Primary documented in this encounter [employer] Phone: Evaluation note Note Date & Type Note Facility Evaluation note Diagnosis Venous insufficiency of left leg- Primary Varicose veins of lower extremity with pain, left documented in this encounter [employer] Phone: Evaluation note Note Date & Type Note Facility Evaluation note Diagnosis Acute URI Acute upper respiratory infections of unspecified site documented in this encounter [employer] Phone: Evaluation note Note Date & Type Note Facility Evaluation note Diagnosis Frequent urination Urinary frequency documented in this encounter [employer] Phone: Evaluation note Note Date & Type Note Facility Evaluation note Diagnosis Acute cystitis without hematuria Acute cystitis documented in this encounter [employer] Work Phone: Evaluation note Note Date & Type Note Facility Evaluation note Diagnosis Viral URI Acute upper respiratory infections of unspecified site documented in this encounter [employer] Phone: Evaluation note Note Date & Type Note Facility Evaluation note Diagnosis Vaginal discharge Leukorrhea, not specified as infective documented in this encounter [employer] Phone: Evaluation note Note Date & Type Note Facility Evaluation note Diagnosis Onset Date Chronic back pain acute Degenerative disc disease ac [place] Maxillary sinusitis acute Medication monitoring encounter acute Onychomycosis acute Screening for breast cancer acute Screening for lipid disorders acute Screening for metabolic disorder acute Screening, deficiency anemia, iron acute UTI (urinary tract infection) acute [facility] Work Phone: Assessments Diagnosis Preop testing- Primary Preoperative examination, unspecified Diagnosis Varicose veins of left lower extremity with pain- Primary Varicose veins of lower extremities with other complications Venous insufficiency of left leg Advance Directives Documents on File Type Date Recorded Patient Waterproof Material Folder Expl anation ACP-Advance Directive ACP-[employer] Documents on File Type Date Recorded Patient Waterproof Material Folder Expl anation ACP-Advance Directive [employer] Advance Directive Response Recorded Date/ Time Advance Directives No March 05, 024 1:27pm Discharge Instructions * Instructions* Xiomara Andie, RN - 02/09/2021 Dressing can be removed 02/11 in the morning and a shower can be taken at that time. Wear thigh high charbel hose after dressing is removed Follow up in 3-4 weeks. documented in this encounter Reason for Referral Status Reason Specialty Diagnoses / Procedures Referred By Contact Referred To Contact Open Specialty Services Required Pharmacist / Pharmacy Diagnoses Acute deep vein thrombosis (DVT) of popliteal vein of left lower extremity (HCC) Vianca Roldan MD [address] [address] [facility] [address] [place] [address] Scheduling Instructions [facility] Medication Management [address] [place] [address] Status Reason Specialty Diagnoses / Procedures Referre d By Contact Referred To Contact Closed Radiology Diagnoses Varicose veins of lower extremity with pain, left Procedures VL DUP LOWER EXTREMITY VENOUS LEFT Steven Martino MD [address] [address] Summary Purpose Family History No Family History Records FoundNo Family History Records Found Chief Complaint and Reason for Visit Chief Complaint establish Reason for Visit Chronic back pain Degenerative disc disease Maxillary sinusitis Medication monitoring encounter Onychomycosis Screening for breast cancer Screening for lipid disorders Screening for metabolic disorder Screening, deficiency anemia, iron UTI (urinary tract infection) Additional Source Comments Reason for Visit (unrecogniz ed section and content) Status Reason Specialty Diagnoses / Procedures Referre d By Contact Referred To Contact Diagnoses Varicose veins of leg with pain, left VARICOSE VEINS WITH PAIN LEFT Procedures SD ENDOVENOUS RF, 1ST VEIN LEFT GREATER SAPHENOUS VEIN ABLATION RADIOFREQUENCY ENDOSCOPIC Steven Martino MD [id number] [address] [address] [facility] Reason Comments Leg Pain vein stripping 02/09, throbbing to left lower leg started a week after surgery, doppler today positive for DVT Status Reason Specialty Diagnoses / Procedures Referre d By Contact Referred To Contact Closed Radiology Diagnoses Varicose veins of lower extremity with pain, left Procedures VL DUP LOWER EXTREMITY VENOUS LEFT Steven Martino MD [address] [facility] [address] [place] [address] Ordered Prescriptions (unrec ognized section and content) Prescription Sig Dispensed Refills Start Date End Da te apixaban starter pack (ELIQUIS DVT/PE STARTER PACK) 5 MG TBPK tablet Take 1 tablet by mouth See Admin Instructions 74 tablet 0 03/23/2021 INFORMATION SOURCE (unrecogn ized section and content) DATE CREATED AUTHOR 03/25/2021 [facility] DATE CREATED AUTHOR AUTHOR'S ORGANIZ ATION 06/05/2023 [facility] Care Teams (unrecognized sec tion and content) Advertising Operations Manager Relationship Specialty Start Date End Date Will Forrester MD [address] [place] [address] PCP - General Family Medicine 01/25/21 Advertising Operations Manager Relationship Specialty Start Date End Date Will Forrester MD [address] [place] [address] PCP - General Family Medicine 01/25/21 Advertising Operations Manager Relationship Specialty Start Date End Date Will Forrester MD [address] [place] [address] PCP - General Family Medicine 01/25/21 Advertising Operations Manager Relationship Specialty Start Date End Date Will Forrester MD [address] [place] [address] PCP - General Family Medicine 01/25/21 Team Status: Active Member Role Status Dates Yas Nance APRN HOME LENDING OFFICER-C Primary Care Provider Active Team Status: Inactive Member Role Status Dates Yas Nance APRN HOME LENDING OFFICER-C Primary Care Provider, Attending Provider Active Start: March 13, 2024 End: March 13, 2024 Goals (unrecognized section and content) Goals may be documented in a n alternate section FOR RECORDS PERTAINING TO PATIENTS WHO ARE OR HAVE BEEN ENROLLED IN A CHEMICAL DEPENDENCY/SUBSTANCEABUSE PROGRAM, SOME INFORMATION MAY BE OMITTED. This clinical summary was aggregated from multiple sources. Caution should be exercised in using it in the provision of clinical care. This summary normalizes information from multiple sources, and as a consequence, information in this document may materially change the coding, format and clinical context of patient data. In addition, data may be omitted in some cases. CLINICAL DECISIONS SHOULD BE BASED ON THE PRIMARY CLINICAL RECORDS. [employer] provides no warranty or guarantee of the accuracy or completeness of information in this document.
== END 2024-03-24 12:48 | disposition home or self-care (01) ==
LOC: MAMMO 12:47
PROVIDERS: PCP Nurse Practitioner Family; Visit Provider Nurse Practitioner Family
DX: Z12.31 Encounter for screening mammogram for malignant neoplasm of breast (principal)
CPT/HCPCS: 77063; 77067

== ENCOUNTER 2025-07-16 10:52 | Outpatient (OUT) | payer OTHER, SELFPAY ==
--- NOTE | 2025-07-16 10:58 | XR_ITS ---
The [address] [address] Patient Name: SHERRIE FALK MRN: [id number] date: 1965 Sex: F Assigned Patient Location: [facility] Current Patient Location: [facility] Accession/Order Number: [id number] Exam Date: 07/16/2025 11:10 Report Date: 07/16/2025 11:53 At the request of: ZENAIDA WERNER Procedure: XR lumbar spine min 4V LUMBAR SPINE -4 views: CLINICAL HISTORY: Chronic low back pain with radiation down the right leg. No injury. COMPARISON: None AP, lateral and both oblique views of the lumbosacral junction were obtained. There is slight dextroscoliotic curvature. There is no definite acute compression fracture. Alignment is maintained on the lateral view. There is multilevel disc space narrowing with relative sparing at L3-4. There is vacuum phenomenon at L4-5 and the lumbosacral junction. Endplate spurring is present throughout. Lower lumbar facet hypertrophy is seen. No pars defect is identified. The sacroiliac joints are maintained and there is minor sclerosis. There are no paraspinal soft tissue abnormalities. XR/XR lumbar spine min 4V IMPRESSION: SUBTLE SCOLIOSIS AND DEGENERATIVE CHANGES. NO ACUTE BONY FINDINGS. Impression dictated by: Radha Webb M.D. 07/16/2025 11:53 AM Dictation Location: [place] [address] Electronically authenticated by: [id number] Y Date: 07/16/2025 11:53
--- OUTSIDE RECORDS SUMMARY | 2025-07-16 11:01 | XMS_ITS | CCD ---
Author Organization [facility] Care Team Providers Care Sales Engineer Account Manager Name Role Phone Will Forrester Primary Care Provider WILL FORRESTER Primary Care Unavailable STEVEN MARTINO Referring Unavailable STEVEN MARTINO Referring Unavailable KOEHL, WILL T Primary Care Unavailable MITZY, WILL T Primary Care Unavailable STEVEN MARTINO Admitting Unavailable STEVEN MARTINO Attending Unavailable VIANCA ROLDAN Attending Unavailable MITZY, WILL T Primary Care Unavailable STEVEN MARTINO Referring Unavailable KOEHL, WILL T Primary Care Unavailable Mitzy CHAUDHRY, Will Ortiz Primary Care Provider Mitzy CHAUDHRY, Will Ortiz Primary Care Provider [phone] Mitzy CHAUDHRY, Will Ortiz Primary Care Provider [phone] VITA ALMONTE Referring Unavailable KOEHL, WILL T Primary Care Unavailable SIM WELLER Referring Unavailable KOEHL, WILL T Primary Care Unavailable Yas Nance APRN Primary Care Provider Yas Nance APRN Attending Provider Yas Nance Admitting Unavailable Yas Nance Attending Unavailable Yas Nance Primary Care Unavailable YAS NANCE Primary Care Physician Ewa Hernandez Attending Unavailable Ewa Hernandez Admitting Unavailable Ewa Hernandez Attending Unavailable YAS NANCE Referring Unavailab le Ewa Hernandez Attending Unavailable Ewa Hernandez Attending Unavailable Ewa Hernandez Admitting Unavailable Allergies Allergy Classification Reported Allergen(s) Allergy Type Date of Onset Reaction(s) Facility Sulfamethoxazole / Trimethoprim (2 sources) Sulfamethoxazole / Trimethoprim Drug Allergy 01-26-20 21 Rash [facility] (10 sources) Sulfamethoxazole / Trimethoprim; Translations: [sulfamethoxazole-t rimethoprim] Drug Allergy 01-26-20 21 Rash, Skin irritation (disorder) [employer] Work Phone: (5 sources) Acetaminophen / oxyCODONE Drug Allergy 07-25-20 [employer] Work Phone: (9 sources) Sulfamethoxazole; Translations: [sulfamethoxazole] Drug Allergy 03-13-20 24 Weal (disorder) [facility] (9 sources) Trimethoprim; Translations: [trimethoprim] Drug Allergy 03-13-20 24 Weal (disorder) [facility] NEGATED: Highlighted row has been ruled out! (5 sources) Other Propensity to adverse reactions 07-25-20 [facility] Medications Current Medications Medication Drug Class(es) Dates [...] oral solution (1 source) alpha-Adrenergic Agonist, Uncompetitive F-azryjg-Z-aspartate Receptor Antagonist, Sigma-1 Agonist Start: 03-26-2022 End: 03-31-2022 take 10 mL by mouth four times daily as needed for cough cfssahidykufsor-tqhzztqbehrawva-MG 2-30-10 MG/5ML syrup Indications: Cough Take 10 mLs by mouth 4 times daily as needed for Cough 200 mL 0 03/26/2022 03/31/2022 Active calcium chloride 0.0014 meq/ml / potassium chloride 0.004 meq/ml / sodium chloride 0.103 meq/ml / sodium lactate 0.028 meq/ml injectable solution (1 source) Start: 02-10-2021 lactated ringers infusion Start: 02-10-2021 lactated ringe rs infusion cephalexin 500 mg oral capsule (3 sources) [...] days 20 capsule 0 03/26/2022 04/05/2022 Active cyclobenzaprine hydrochloride 10 mg oral tablet (6 sources) Muscle Relaxant take 5 mg by mouth twice daily as needed for muscle spasms cyclobenzaprine (FLEXERIL) 10 MG tablet Take 5 mg by mouth 2 times daily as needed for Muscle spasms 0 Active 2 ml fentaNYL 0.05 mg/ml injection (2 sources) Opioid Agonist Start: 02-10-20 fentaNYL (SUBLIMAZE) injection 25 mcg Start: 02-09-2021 fentaNYL (SUBL IMAZE) injection 50 mcg 10 ml lidocaine hydrochloride 10 mg/ml injection (1 source) Antiarrhythmic, Amide Local Anesthetic Start: 02-10-2021 End: 02-10-2021 lidocaine PF 1 % injection 1 mL methylPREDNISolone 4 mg oral tablet (1 source) Corticosteroid Start: 03-30-2025 take 1 tablet by mouth once Methylprednisolone (Medrol (Angel)) 4 mg tablets,dose pack Active 0 PO per package directions March 30, 2025 12:00am PO PER PKG DIR ondansetron 4 mg oral tablet (9 sources) Serotonin-3 Receptor Antagonist Start: 04-22-2022 End: 04-27-2022 take 1 tablet by mouth every eight hours as needed for nausea ondansetron (ZOFRAN ODT) 4 MG disintegrating tablet Indications: Nausea Take 1 tablet by mouth every 8 hours as needed for Nausea or Vomiting 15 tablet 0 04/22/2022 04/27/2022 Active Start: 12-03-2021 take 1 tablet by ian three times daily as needed for nausea [...] e flush 0.9 % injection 10 mL Completed/Discontinued Medications Medication Drug Class(es) Dates Sig (Normalized) Sig (Original) apixaban 5 mg oral tablet (7 sources) Factor Xa Inhibitor Start: 03-23-2021 End: 03-23-2021 apixaban (ELIQUIS) tablet 10 mg Start: 03-23-2021 apixaban start er pack (ELIQUIS DVT/PE STARTER PACK) 5 MG TBPK tablet Take 1 tablet by mouth See Admin Instructions 74 tablet 0 03/23/2021 Active azithromycin 250 mg oral tablet (4 sources) Macrolide Antimicrobial Start: 04-23-2024 End: 03-22-2025 Azithromycin 250 mg tablet Discontinued 250 MG PO daily 6 April 23, 2024 12:00am March 22, 2025 1:16pm Take 2 today and then 1 for the next 4 days cefdinir 300 mg oral capsule (5 sources) Cephalosporin Antibacterial Start: 03-13-2024 End: 04-23-2024 take 1 capsule by mouth twice daily Cefdinir 300 mg capsule Discontinued 300 MG PO Twice daily 14 March 13, 2024 12:00am April 23, 2024 3:28pm ciclopirox 80 mg/ml topical solution (5 sources) Start: 03-13-2024 End: 04-23-2024 Ciclopirox (Ciclodan) 8 % solution Discontinued 1 APPLIC TOPICAL Daily at bedtime 6.6 March 13, 2024 12:00am April 23, 2024 3:28pm dextromethorphan hydrobromide 3 mg/ml / promethazine hydrochloride 1.25 mg/ml oral solution (4 sources) Phenothiazine, Uncompetitive Q-lzieuu-M-aspartat e Receptor Antagonist, Sigma-1 Agonist Start: 04-23-2024 End: 03-22-2025 take 1 mL by mouth three times daily as needed for cough Promethazine-Dm 6.25-15 mg/5 mL syrup Discontinued 5 ML PO Three times daily as needed for cough 75 April 23, 2024 12:00am March 22, 2025 1:16pm ibuprofen 200 mg oral tablet (1 source) Nonsteroidal Anti-inflammatory Drug Start: 02-09-2021 End: 02-09-2021 ibuprofen (ADVIL;MOTRIN) tablet 400 mg terbinafine 250 mg oral tablet (10 sources) Allylamine Antifungal Start: 04-08-2024 End: 03-22-2025 take 1 tablet by mouth once daily Terbinafine Hcl 250 mg tablet Discontinued 250 MG PO Daily 14 April 08, 2024 12:00am March 22, 2025 1:22pm Start: 01-22-2021 take 1 tablet by ain once daily terbinafine (LAMISIL) 250 MG tablet Take 1 tablet by mouth daily 0 01/22/2021 Active Problems Active Problems Problem Classification Problem Date Documented Date Episodic/Chronic Abdominal pain (3 sources) Abdominal pain; Translations: [Unspecified abdominal pain] Onset: 03-31-2025 Episodic Genitourinary symptoms and ill-defined conditions (3 sources) Urge incontinence; Translations: [Urge incontinence of urine] Onset: 03-31-2025 Chronic Genitourinary symptoms and ill-defined conditions (12 sources) Increased frequency of urination; Translations: [Frequency of micturition] Onset: 03-22-2025 Episodic Headache; including migraine (2 sources) Migraine without aura, not refractory ; Translations: [Migraine without aura, not intractable, without status migrainosus] Onset: 09-09-2017 09-30-2022 Chronic Headache; including migraine (2 sources) Acute headache 03-31-2025 Episodic Mycoses (7 sources) Onychomycosis; Translations: [Tinea unguium] 03-13-2024 Episodic Other aftercare (20 sources) Patient encounter status; Translations: [Encounter for therapeutic drug level monitoring] 03-13-2024 Episodic Other aftercare (2 sources) Encounter for therapeutic drug level monitoring; Translations: [Encounter for therapeutic drug monitoring] 03-13-2024 Episodic Other diseases of bladder and urethra (1 source) Detrusor overactivity; Translations: [Overactive bladder] Onset: 03-31-2025 Chronic Other diseases of bladder and urethra (2 sources) Overactive bladder 03-31-2025 Chronic Other female genital disorders (1 source) Vaginal discharge; Translations: [Other specified noninflammatory disorders of vagina] Episodic Other inflammatory condition of skin (2 sources) Pruritus, unspecified; Translations: [Pruritus] 03-30-2025 Episodic Other nutritional; endocrine; and metabolic disorders (2 sources) Obesity; Translations: [Other obesity due to excess calories] Onset: 09-30-2022 09-30-2022 Chronic Other screening for suspected conditions (not mental disorders or infectious disease) (8 sources) Encounter for other screening for malignant neoplasm of breast; Translations: [Breast screening, unspecified] 03-13-2024 Episodic Other skin disorders (4 sources) Skin lesion; Translations: [Disorder of the skin and subcutaneous tissue, unspecified] 03-16-2024 Episodic Other upper respiratory infections (8 sources) Maxillary sinusitis; Translations: [Chronic maxillary sinusitis] 03-13-2024 Chronic Spondylosis; intervertebral disc disorders; other back problems (11 sources) Degeneration of lumbar intervertebral disc; Translations: [Other intervertebral disc degeneration, lumbar region] Onset: 09-30-2022 09-30-2022 Chronic Spondylosis; intervertebral disc disorders; other back problems (9 sources) Chronic back pain ; Translations: [Dorsalgia, unspecified] 03-13-2024 Episodic Unclassified (1 source) Patient encounter status; Translations: [Preop testing] Unclassified (2 sources) Asymptomatic microscopic hematuria 03-31-2025 Urinary tract infections (8 sources) Acute cystitis; Translations: [Acute cystitis without hematuria] Episodic Varicose veins of lower extremity (2 sources) Pain co-occurrent and due to varicose veins of left leg; Translations: [Varicose veins of left lower extremity with pain] Onset: 02-09-2021 02-09-2021 Viral infection (2 sources) Verruca vulgaris; Translations: [Viral wart, unspecified] 03-23-2025 Episodic Past or Other Problems Problem Classification Problem Date Documented Da te Episodic/Chronic Calculus of urinary tract (2 sources) Kidney stone; Translations: [Calculus of kidney] Onset: 05-16-2018 09-30-2022 Episodic Chronic obstructive pulmonary disease and bronchiectasis (2 sources) Chronic obstructive pulmonary disease and bronchiectasis 03-31-2025 Conditions associated with dizziness or vertigo (2 [...] Results Test Name Value Interpretation Reference Range [facility] Urineon 04-02-2025 Bacteria identified Cx Nom (U) Microbiology PROCEDURE: Urine Culture [R1] SOURCE: U CleanCatch BODY SITE: COLLECTED DATE/TIME: 03/31/2025 10:09 EDT RECEIVED DATE/TIME: 03/31/2025 17:50 EDT START DATE/TIME: 03/31/2025 17:50 EDT FREE TEXT SOURCE: Ewa Hernandez PA-C, PA-C, Ewa FINAL REPORTS Final Report [] Verified Date/Time: 04/02/2025 10:28 EDT 20,000 cfu/ml Escherichia coli 2,000 cfu/ml Mixed skin contaminants SUSCEPTIBILITY RESULTS __ LEGEND: S=Susceptible, N/R=Not Reported, Blank=Data not available, or drug not advisable or tested, I=Intermediate, ESBL=Extended spectrum beta-lactamase, R=Resistant, TFG=Thymidine-dependen t strain, FLOYD=Beta-lactamase positive, MERON=mcg/m;(mg/L), S*=Predicted susceptible interp, R*=Predicted resistant interp EC Antibiotic MERON Dilutn MERON Interp Ampicillin <=8 S Ampicillin/ <=8/4 S Sulbactam Aztreonam <=4 S Cefazolin <=2 S Cefepime <=2 S Ceftazidime <=1 S Ceftazidime/ <=8 S Avibactam Ceftriaxone <=1 S Cefuroxime <=4 S Ciprofloxacin <=0.25 S Ertapenem <=0.5 S Gentamicin <=2 S Levofloxacin <=0.5 S Meropenem <=1 S Nitrofurantoin <=32 S Piperacillin/ <=8 S Tazobactam Tetracycline <=4 S Tobramycin <=2 S Trimethoprim/ <=2/38 S Sulfa Performing Locations R1: This test was performed at: [facility], [address] [place] [address], [phone] [phone] , [facility] [place] Comment on above: Performed By: #### [id number] #### [facility] [address] [place] [address] Ambulatory Visit Summaryon 0 03-31-2025 Ambulatory Visit Summary Ambulatory Visit Summary SHERRIE FALK :1965 Visit Date:03/25/2025 Ambulatory Visit Instructions Your Care Team Primary Care Physician - YAS NANCE CNP This Is Your Medications List methylPREDNISolone (methylPREDNISolone 4 mg tab dosepak) Procedures Performed Bunion of right great toe, Colonoscopy, Hysterectomy, Tubal ligation done. What to do next You Need to Complete the Following Urinalysis with Micro, Urine, Clean Catch, Routine collect, 03/31/25, Order for future visit, Nurse collect, Urinary frequency Urge incontinence Feeling of incomplete bladder emptying, Print Label By Order Location Urine Culture, Urine, Clean Catch, Routine collect, 03/31/25, Order for future visit, Nurse collect, Urinary frequency Urge incontinence Feeling of incomplete bladder emptying, Print Label By Order Location Medications What How Much When Instructions Unchanged methylPREDNISolone (methylPREDNISolone 4 mg tab dosepak) 1 Packets By Mouth Once Duration: 6 Days as directed on package labeling Allergies sulfamethoxazole (Hives) sulfamethoxazole-trime thoprim (Skin irritation) trimethoprim (Hives) Problems Ongoing - Any problem that you are currently receiving treatment for. Chronic back pain DDD (degenerative disc disease), lumbar Frequency of micturition Urge incontinence Urinary frequency Historical - Any problem that you are no longer receiving treatment for. Acute headache COPD (Chronic Obstructive Pulmonary Disease) Assessment Test scale Patient Survey You may receive a survey via text or e-mail asking about your office visit. Please share your experience with us by completing your survey. We appreciate your feedback and thank you for choosing us for your care. Normal [facility] URINALYSISOrdered By: Mitzy Gaming on 03-31-2025 Bacteria Auto Ql (U) Trace /HPF Normal Trace/HPF [facility] UA Auto SS Bilirubin Ql (U) Negative Normal Negativemg/ d L [facility] UA Auto SS Clarity (U) Turbid *ABN* (03/31/25 10:09 AM) Invalid Interpretation Code Clear [facility] UA Auto SS Color (U) Yellow 1 (03/31/25 10:09 AM) Normal Yellow [facility] UA Auto SS Comment on above: Interpretive Data: M icroscopic readings are only performed on those samples that meet specific criteria set forth by [facility]. Epithelial cells.squamous Auto (Urine sed) [#/Area] >10 graded/HPF Invalid Interpretation Code [facility] UA Auto SS Glucose Ql (U) Negative Normal Negativemg/d L [facility] UA Auto SS Hemoglobin Auto test strip (U) [Mass/Vol] 1+ *ABN* (03/31/25 10:09 AM) Invalid Interpretation Code Negative [facility] UA Auto SS Hyaline casts LM Ql (Urine sed) 21-30 graded/LPF Invalid Interpretation Code 0-3graded/LP F [facility] UA Auto SS Ketones Auto test strip Ql (U) Negative Normal Negativemg/d L [facility] UA Auto SS Leukocyte esterase Auto test strip Ql (U) 75 Janel/uL *ABN* (03/31/25 10:09 AM) Invalid Interpretation Code Negative [facility] UA Auto SS Mucus Auto Ql (U) 1+ *ABN* (03/31/25 10:09 AM) Invalid Interpretation Code Negative [facility] UA Auto SS Nitrite Auto test strip Ql (U) Negative Normal Negativemg/d L [facility] UA Auto SS pH (U) 5.5 *NA* (03/31/25 10:09 AM) Invalid Interpretation Code 5.0 - 9.0 [facility] UA Auto SS Protein Ql (U) Trace mg/dL Invalid Interpretation Code Negativemg/d L [facility] UA Auto SS RBC Ql (U) 0-3 graded/HPF Normal 0-3graded/HP F [facility] UA Auto SS Specific gravity (U) [Rel density] 1.034 *NA* (03/31/25 10:09 AM) Invalid Interpretation Code 1.005 - 1.030 [facility] UA Auto SS Transitional cells Computer assisted (U) [#/Area] 0-2 graded/HPF Normal 0-2graded/HP F [facility] UA Auto SS Urobilinogen (U) [Mass/Vol] Negative Normal Negativemg/d L [facility] UA Auto SS WBC Auto (Urine sed) [#/Area] 6-15 *ABN* (03/31/25 10:09 AM) Invalid Interpretation Code 0-5 [facility] UA Auto SS URINALYSISOrdered By: Camelia Wolfe on 03-31-2025 UA Spec Desc Clean Catch (03/31/25 10:09 AM) Normal [facility] UA Auto SS Urinalysis with Microon 03-18 Bacteria Auto Ql (U) Trace Normal Trace [facility] Comment on above: Performed By: #### [id number] #### [facility] [address] [place] [address] Bilirubin Ql (U) Negative Normal Negative [facility] Comment on above: Performed By: #### 4 [id number] #### [facility] [address] [place] [address] Clarity (U) Turbid Abnormal Clear [facility] Comment on above: Performed By: #### 4 [id number] #### [facility] [address] [place] [address] Color (U) Yellow Normal Yellow [facility] Comment on above: Result Comment: Micr oscopic readings are only performed on those samples that meet specific criteria set forth by [facility]. Performed By: #### 4 [id number] #### [facility] [address] [place] [address] Epithelial cells.squamous Auto (Urine sed) [#/Area] >10 Invalid Interpretation Code [facility] Comment on above: Performed By: #### 4 [id number] #### [facility] [address] [place] [address] Glucose Ql (U) Negative Normal Negative [facility] Comment on above: Performed By: #### 4 [id number] #### [facility] [address] [place] [address] Hemoglobin Auto test strip (U) [Mass/Vol] 1+ Abnormal Negative [facility] Comment on above: Performed By: #### 4 [id number] #### [facility] [address] [place] [address] Hyaline casts LM Ql (Urine sed) 21-30 Abnormal 0-3 [facility] Comment on above: Performed By: #### 4 [id number] #### [facility] [address] [place] [address] Ketones Auto test strip Ql (U) Negative Normal Negative [facility] Comment on above: Performed By: #### 4 [id number] #### [facility] [address] [place] [address] Leukocyte esterase Auto test strip Ql (U) 75 Janel/uL Abnormal Negative [facility] Comment on above: Performed By: #### 4 [id number] #### [facility] [address] [place] [address] Mucus Auto Ql (U) 1+ Abnormal Negative [facility] Comment on above: Performed By: #### 4 [id number] #### [facility] [address] [place] [address] Nitrite Auto test strip Ql (U) Negative Normal Negative [facility] Comment on above: Performed By: #### 4 [id number] #### [facility] [address] [place] [address] pH (U) 5.5 [pH] Invalid Interpretation Code 5.0-9.0 [facility] Comment on above: Performed By: #### 4 [id number] #### [facility] [address] [place] [address] Protein Ql (U) Trace Abnormal Negative [facility] Comment on above: Performed By: #### 4 [id number] #### [facility] [address] [place] [address] RBC Ql (U) 0-3 Normal 0-3 [facility] Comment on above: Performed By: #### 4 [id number] #### [facility] [address] [place] [address] Specific gravity (U) [Rel density] 1.034 Invalid Interpretation Code 1.005-1.030 [facility] Comment on above: Performed By: #### 4 [id number] #### [facility] [address] [place] [address] Transitional cells Computer assisted (U) [#/Area] 0-2 Normal 0-2 [facility] Comment on above: Performed By: #### 4 [id number] #### [facility] [address] [place] [address] Urobilinogen (U) [Mass/Vol] Negative Normal Negative [facility] Comment on above: Performed By: #### 4 [id number] #### [facility] [address] [place] [address] WBC Auto (Urine sed) [#/Area] 6-15 Abnormal 0-5 [facility] Comment on above: Performed By: #### 4 [id number] #### [facility] [address] [place] [address] Type of Urine collection method Clean Catch Normal [facility] Comment on above: Performed By: #### 4 [id number] #### [facility] [address] [place] [address] Laboratory - Chemistry and C hemistry - challengeon 03-22-2025 Bilirubin Ql (U) Negative [facility] Glucose (U) [Mass/Vol] Negative [facility] Ketones Ql (U) Negative [facility] pH (U) 5.0 [pH] [facility] Specific gravity (U) [Rel density] 1.000 [facility] Urobilinogen (U) [Mass/Vol] 0.2 mg/dL [facility] Laboratory - Specimen inform ationon 03-22-2025 Appearance (U) Clear [facility] Color (U) Yellow [facility] Laboratory - Urinalysison Leukocyte esterase Test strip Ql (U) 15 [facility] Nitrite Ql (U) Negative [facility] Protein Ql (U) Negative [facility] No Panel Informationon 03-22 Urine Occult Blood Negative [facility] Urine Cultureon 03-22-2025 Bacteria identified Cx Nom (U) <9,000 colonies/ml mixed bacterial skin contaminants 2 Days PERFORMED BY: [facility] [address] [place] [address] PATHOLOGIST FUR DRUMMER VARGAS QUILES M.D. Normal [facility] Comment on above: Performed By: #### C UU #### [facility] [address] Urine cultureOrdered By: Shell Nance on 03-22-2025 Bacteria identified Cx Nom (U) Urine culture [facility] Cholesterol in LDL Calc [Mas s/Vol]on 03-17-2024 Cholesterol in LDL [Mass/Vol] 151.0 mg/dL [facility] Comment on above: <100 mg/dl [id number] 0-129 mg/dl NEAR OR ABOVE [id number] mg/dl BORDERLINE [id number] mg/dl HIGH>190 mg/dl VERY HIGH Cholesterol in VLDL Calc [Ma ss/Vol]on 03-17-2024 Cholesterol in VLDL [Mass/Vol] 9.4 mg/dL [facility] Estimated glomerular filtrat ion rate (GFR) non- Americanon 03-17-2024 GFR/1.73 sq M.predicted among non-blacks MDRD (S/P/Bld) [Vol rate/Area] mL/min/{1.73_m2} >=60 [facility] Globulin Calc (S) [Mass/Vol] on 03-17-2024 Globulin (S) [Mass/Vol] 3.7 g/dL [facility] Laboratory - Chemistry and C hemistry - challengeon 03-17-2024 Albumin [Mass/Vol] 3.2 g/dL 3.4-5.0 [facility] ALP [Catalytic activity/Vol] 104 U/L 46-116 [facility] ALT [Catalytic activity/Vol] 23 U/L 14-59 [facility] AST [Catalytic activity/Vol] 16 U/L 15-37 [facility] Bilirubin [Mass/Vol] 0.7 mg/dL 0.2-1.0 [facility] Calcium [Mass/Vol] 9.2 mg/dL 8.5-10.1 [facility] Chloride [Moles/Vol] 107 mmol/L 98-107 [facility] Cholesterol [Mass/Vol] 211 mg/dL <=200 [facility] Cholesterol in HDL [Mass/Vol] 51 mg/dL 40-60 [facility] Comment on above: > or =60 mg/dl - LOW CARDIOVASCULAR RISK<40 mg/dl - HIGH CARDIOVASCULAR RISK CO2 [Moles/Vol] 29.2 mmol/L 21.0-32.0 [facility] Creatinine [Mass/Vol] 0.94 mg/dL 0.55-1.02 [facility] GFR/1.73 sq M.predicted MDRD (S/P/Bld) [Vol rate/Area] mL/min/{1.73_m2} >=60 [facility] Glucose [Mass/Vol] 87 mg/dL 74-106 [facility] Potassium [Moles/Vol] 4.1 mmol/L 3.5-5.1 [facility] Protein [Mass/Vol] 6.9 g/dL 6.4-8.2 [facility] Sodium [Moles/Vol] 141 mmol/L 136-145 [facility] Triglyceride [Mass/Vol] 47 mg/dL <=150 [facility] Urea nitrogen [Mass/Vol] 18.0 mg/dL 7.0-18.0 [facility] Urea nitrogen/Creatinine [Mass ratio] 19.1 mg/mg [facility] Serum or plasma albumin/glob ulin mass ratioon 03-17-2024 Albumin/Globulin [Mass ratio] 0.9 {ratio} [facility] Serum or plasma anion gap de terminationon 03-17-2024 Anion gap [Moles/Vol] 8.9 mmol/L [facility] Serum or plasma total choles terol/high density lipoprotein (HDL) cholesterol mass guerda 03-17-2024 Cholesterol.total/Cho lesterol in HDL [Mass ratio] 4.1 {ratio} [facility] Comment on above: 3.3 - 4.4 LOW RISK4. 4 - 7.1 AVERAGE RISK7.1 - 11.0 MODERATE RISK>11.0 HIGH RISK Basophils Auto (Bld) [#/Vol] on 03-16-2024 Basophils (Bld) [#/Vol] 0.1 10 3/uL 0.0-0.1 [facility] Basophils/100 WBC Auto (Bld) on 03-16-2024 Basophils/100 WBC (Bld) 0.8 % 0.2-2.0 [facility] Eosinophils/100 WBC Auto (Bl d)on 03-16-2024 Eosinophils/100 WBC (Bld) 3.3 % 0.9-7.0 [facility] Erythrocyte distribution wid th Auto (RBC) [Ratio]on 03-16-2024 Erythrocyte distribution width (RBC) [Ratio] 12.2 % 11.0-15.0 [facility] Hematocrit Auto (Bld) [Volum e fraction]on 03-16-2024 Hematocrit (Bld) [Volume fraction] 40.6 % 36.0-48.0 [facility] Hemoglobin [Mass/volume] in Bloodon 03-16-2024 Hemoglobin (Bld) [Mass/Vol] 13.7 g/dL 12.0-16.0 [facility] Laboratory - Hematology and Cell countson 03-16-2024 Immature granulocytes/100 WBC (Bld) 0.2 % 0.0-0.5 [facility] Leukocytes [#/volume] correc charbel for nucleated erythrocytes in Blood by Automated counon 03-16-2024 WBC corrected for nucl RBC Auto (Bld) [#/Vol] 6.3 10 3/uL 4.0-11.0 [facility] Lymphocytes Auto (Bld) [#/Vo l]on 03-16-2024 Lymphocytes (Bld) [#/Vol] 2.3 10 3/uL 1.2-3.8 [facility] Lymphocytes/100 WBC Auto (Bl d)on 03-16-2024 Lymphocytes/100 WBC (Bld) 35.7 % 20.5-60.0 [facility] MCH Auto (RBC) [Entitic mass ]on 03-16-2024 MCH (RBC) [Entitic mass] 30.4 pg 26.7-34.0 [facility] MCHC Auto (RBC) [Mass/Vol]on 03-16-2024 MCHC (RBC) [Mass/Vol] 33.7 g/dL 29.9-35.2 [facility] MCV Auto (RBC) [Entitic vol] on 03-16-2024 MCV (RBC) [Entitic vol] 90.2 fL 81.0-99.0 [facility] Monocytes Auto (Bld) [#/Vol] on 03-16-2024 Monocytes (Bld) [#/Vol] 0.5 10 3/uL 0.3-0.8 [facility] Monocytes/100 WBC Auto (Bld) on 03-16-2024 Monocytes/100 WBC (Bld) 8.4 % 1.7-12.0 [facility] Neutrophils Auto (Bld) [#/Vo l]on 03-16-2024 Neutrophils (Bld) [#/Vol] 3.3 10 3/uL 1.4-6.5 [facility] Neutrophils/100 WBC Auto (Bl d)on 03-16-2024 Neutrophils/100 WBC (Bld) 51.6 % 43.0-75.0 [facility] No Panel Informationon 03-16 Eosinophils # (Auto) 0.2 10 3/uL 0.0-0.7 [facility] Immature Granulocyte # (Auto) 0.01 10 3/uL 0.00-0.03 [facility] Platelet mean volume Auto (B ld) [Entitic vol]on 03-16-2024 Platelet mean volume (Bld) [Entitic vol] 9.0 fL 9.5-13.5 [facility] Platelets Auto (Bld) [#/Vol] on 03-16-2024 Platelets (Bld) [#/Vol] 249 10 3/uL 150-450 [facility] RBC Auto (Bld) [#/Vol]on RBC (Bld) [#/Vol] 4.50 10 6/uL 4.20-5.40 [facility] Laboratory - Chemistry and C hemistry - challengeon 03-13-2024 Bilirubin Ql (U) Negative [facility] Glucose (U) [Mass/Vol] Negative [facility] Ketones Ql (U) Negative [facility] pH (U) 5.0 [pH] [facility] Specific gravity (U) [Rel density] 1.020 [facility] Urobilinogen (U) [Mass/Vol] 0.2 mg/dL [facility] Laboratory - Specimen inform ationon 03-13-2024 Appearance (U) Hazy [facility] Color (U) DarkYellow [facility] Laboratory - Urinalysison Leukocyte esterase Test strip Ql (U) Trace [facility] Nitrite Ql (U) Negative [facility] Protein Ql (U) 1+Small [facility] No Panel Informationon 03-13 Urine Occult Blood 1+Small [facility] Cult,Urineon 02-20-2023 Cult,Urine Specimen Description .CLEAN CATCH URINE Culture NO SIGNIFICANT GROWTH Report Status FINAL 02/20/2023 Normal [facility] Comment on above: Performed By: #### U RC #### [address] [address] [employer]: Crow Alford MD Vaginitis DNA Probeon 2022 Tiffanie Negative Normal NEG [facility] Comment on above: Result Comment: for Tiffanie sp. Method of testing is a DNA probe intended for detection and identification of Tiffanie species, Gardnerella vaginalis, and Trichomonas vaginalis nucleic acid in vaginal fluid specimens from patients with symptoms of vaginitis/vaginosis. Performed By: #### V AGP #### [address] [address] [employer]: Crow Alford MD Gardnerella Negative Normal NEG [facility] Comment on above: Result Comment: for Gardnerella vaginalis Performed By: #### V AGP #### [address] [address] [employer]: Crow Alford MD Trichomonas Negative Normal NEG [facility] Comment on above: Result Comment: for Trichomonas Vaginalis Performed By: #### V AGP #### [address] [address] [employer]: Crow Alford MD Vaginitis DNA Probeon 2022 Source .VAGINAL SWAB Normal [facility] Comment on above: Performed By: #### V AGP #### [address] [address] [employer]: Crow Alford MD [id number] 10-01-2022 SARS-CoV-2 (COVID-19) RNA FARHAT+probe Ql (Unsp spec) [facility] Comment on above: Performed By: #### C OVID #### [address] [address] [employer]: Crow Alford MD SARS-CoV-2 (COVID-19) RNA FARHAT+probe Ql (Unsp spec) Not detected Normal NOTDET [facility] Comment on above: Result Comment: The specimen is NEGATIVE for SARS-CoV-2, the novel coronavirus associated with COVID-19. A negative result does not rule out COVID-19. Mathew SARS-CoV-2 for use on the Mathew [employer]ke[employer]/8800 [employer] is a real-time RT-PCR test intended [...] this assay. Fact sheet for Healthcare Providers: https://www.fda.gov/media/606182/download Fact sheet for Patients: https://www.fda.gov/media/848951/download METHODOLOGY: RT-PCR Performed By: #### C OVID #### [facility] [address] [place] [address] [phone] [employer]: Crow Alford MD [id number] 09-30-2022 SARS-CoV-2 (COVID-19) RNA FARHAT+probe Ql (Unsp spec) .NASOPHARYNGEAL SWAB Normal [facility] Comment on above: Performed By: #### C OVID #### [facility] [address] [place] [address] [id number] [employer]: Crow Alford MD VL Lower Extremity Venous Le ftOrdered By: Steven Martino on 03-23-2021 Rashaun, Mhpn Incoming Cardio Results From Cpacs/Ge - 03/23/2021 7:12 PM EDT [place] [facility] Lower Extremities DVT Study Procedure Patient Name TABBERT Date of Study 03/23/2021 SHERRIE Osullivan Date of 1965 Gender Female Age 55 year(s) Race Room Number OPT Corporate ID # [id number] Patient MR # [id number] 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 ! ! + ------+------+------+- --------- + [employer] Work Phone: OPERATIVE REPORTon OPERATIVE REPORT [address] [id number] OPERATIVE REPORT PATIENT NAME: SHERRIE COTTRELL : 1965 MED REC NO: [id number] ROOM: ACCOUNT NO: [id number] ADMIT DATE: 02/09/2021 PROVIDER: Steven Martino MD [...] ablation of left greater saphenous vein with Medtronic ClosureFast system (12 cycles). 2. Ligation of [...] greater saphenous vein was isolated and a 7-Sinhala sheath was placed. Medtronic ClosureFast catheter was [...] phlebectomy sites were present. STEVEN MARTINO MD DV/S_LILIAN_ Doc#: [id number] CC: Steven Martino MD Family Physician Normal [place] [id number] 02-06-2021 SARS-CoV-2 (COVID-19) RNA FARHAT+probe Ql (Unsp spec) Normal [place] Comment on above: Performed By: #### C OVID #### [facility] [address] [place] [address] Farmer Vegetable: Raciel Osullivan MD [facility] [employer] [address], [place] [phone] Farmer Vegetable: Crow Alford MD SARS-CoV-2 (COVID-19) RNA FARHAT+probe Ql (Unsp spec) Not detected Normal [facility] Comment on above: Result Comment: The specimen is NEGATIVE for SARS-CoV-2, the novel coronavirus associated with COVID-19. A negative result does not rule out COVID-19. Mathew SARS-CoV-2 for use on the Mathew [employer]0/8800 [employer] is a real-time RT-PCR test intended [...] this assay. Fact sheet for Healthcare Providers: https://www.fda.gov/media/570330/download Fact sheet for Patients: https://www.fda.gov/media/537362/download METHODOLOGY: RT-PCR Performed By: #### C OVID #### [facility] [address] [place], [place] [id number] Farmer [employer]: Raciel Osullivan MD [address] [id number] [employer]: Crow Alford MD [id number] 02-01-2021 SARS-CoV-2 (COVID-19) RNA FARHAT+probe Ql (Unsp spec) .NASOPHARYNGEAL SWAB Normal [place] Comment on above: Performed By: #### C OVID #### [facility] [address] [place], [place] [phone] [employer]: Raciel Osullivan MD [address] [phone] [employer]: Crow Alford MD Basic Metabolic Profon 01-25 (cont.) Normal [place] Comment on above: Result Comment: Aver age GFR for 50-59 years old: 93 mL/min/1.73sq m Chronic Kidney Disease: <60 mL/min/1.73sq m Kidney failure: <15 mL/min/1.73sq m eGFR calculated using average adult body mass. Additional eGFR calculator available at: http://www.BackOps/multiple_crcl_2012.htm Performed By: #### C MIGUEL ÁNGEL PÉREZ, PT #### [facility] [address] [facility] [place] [address] [employer]: Raciel Osullivan MD Anion gap [Moles/Vol] 8 mmol/L Low 9-17 [facility] Comment on above: Performed By: #### MIGUEL ÁNGEL ORTIZ, PT #### [facility] [address] [place] [address] [employer]: Raciel Osullivan MD BUN/CRE Ratio 13 Normal 9-20 [place] Comment on above: Performed By: #### C MIGUEL ÁNGEL PÉREZ, PT #### [facility] [address] [facility] [place] [address] Farmer Veget[employer]: aRciel Osullivan MD Calcium [Mass/Vol] 9.3 mg/dL Normal 8.6-10.4 [place] Comment on above: Performed By: #### C MIGUEL ÁNGEL PÉREZ, PT #### [facility] [address] [facility] [place] [address] [employer]: Raciel Osullivan MD Chloride [Moles/Vol] 105 mmol/L Normal 98-107 [facility] Comment on above: Performed By: #### MIGUEL ÁNGEL ORTIZ, PT #### [facility] [place] [address] Farmer Veget[employer]: Raciel Osullivan MD CO2 [Moles/Vol] 30 mmol/L Normal 20-31 [place] Comment on above: Performed By: #### C MIGUEL ÁNGEL PÉREZ, PT #### [facility] [address] [place] [address] [employer]: Raciel Osullivan MD Creatinine [Mass/Vol] 0.83 mg/dL Normal 0.50-0.90 [facility] Comment on above: Performed By: #### C MIGUEL ÁNGEL PÉREZ, PT #### [facility] [address] [place] [address] [employer]: Raciel Osullivan MD GFR, Amer >60 Normal >60 [facility] Comment on above: Performed By: #### C MIGUEL ÁNGEL PÉREZ, PT #### [facility] [address] [place] [address] Farmer Veget[employer]: Raciel Osullivan MD GFR,non Amer >60 Normal >60 [facility] Comment on above: Performed By: #### C MIGUEL ÁNGEL PÉREZ, PT #### [facility] [address] [place] [address] [employer]: Raciel Osullivan MD Glucose [Mass/Vol] 89 mg/dL Normal 70-99 [place] Comment on above: Performed By: #### C BETO BMP, PT #### [facility] [address] [place] [address] [employer]: Raciel Osullivan MD Potassium [Moles/Vol] 5.0 mmol/L Normal 3.7-5.3 [facility] Comment on above: Performed By: #### C BETO BMP, PT #### [facility] [address] [place] [address] [employer]: Raciel Osullivan MD Sodium [Moles/Vol] 143 mmol/L Normal 135-144 [place] Comment on above: Performed By: #### C MIGUEL ÁNGEL PÉREZ, PT #### [facility] [address] [place] [address] [employer]: Raciel Osullivan MD Urea nitrogen [Mass/Vol] 11 mg/dL Normal 6-20 [place] Comment on above: Performed By: #### C MIGUEL ÁNGEL PÉREZ, PT #### [facility] [address] [place] [address] [employer]: Raciel Osullivan MD Staging: NOT REPORTED Normal [place] Comment on above: Performed By: #### C MIGUEL ÁNGEL PÉREZ, PT #### [facility] [place] [address] Farmer [employer]: Raciel Osullivan MD CBCon 01-25-2021 Erythrocyte distribution width (RBC) [Ratio] 12.6 % Normal 11.8-14.4 [place] Comment on above: Performed By: #### C MIGUEL ÁNGEL PÉREZ, PT #### [facility] [place] [address] Farmer Veget[employer]: Raciel Osullivan MD Hematocrit (Bld) [Volume fraction] 43.1 % Normal 36.3-47.1 [place] Comment on above: Performed By: #### MIGUEL ÁNGEL ORTIZ, PT #### [facility] [address] [place] [address] Farmer [employer]: Raciel Osullivan MD Hemoglobin (Bld) [Mass/Vol] 14.2 g/dL Normal 11.9-15.1 [place] Comment on above: Performed By: #### C MIGUEL ÁNGEL PÉREZ, PT #### [facility] [address] [facility] [place] [address] Farmer [employer]: Raciel Osullivan MD MCH (RBC) [Entitic mass] 30.5 pg Normal 25.2-33.5 [place] Comment on above: Performed By: #### C MIGUEL ÁNGEL PÉREZ, PT #### [facility] [address] [place] [address]. [place] [address] Farmer Vegetable: Raciel Osullivan MD MCHC (RBC) [Mass/Vol] 32.9 g/dL Normal 28.4-34.8 [facility] Comment on above: Performed By: #### C MIGUEL ÁNGEL PÉREZ, PT #### [facility] [address] [place] [address]. [place] [address] [employer]: Raciel Osullivan MD MCV (RBC) [Entitic vol] 92.5 fL Normal 82.6-102.9 [place] Comment on above: Performed By: #### MIGUEL ÁNGEL ORTIZ, PT #### [facility] [address] [place] [address]. [place] [address] Farmer Veget[employer]: Raciel Osullivan MD NRBC Automated 0.0 per 100 WBC Normal 0.0 [place] Comment on above: Performed By: #### MIGUEL ÁNGEL ORTIZ, PT #### [facility] [address] [place] [address]. [place] [address] [employer]: Raciel Osullivan MD Platelet mean volume (Bld) [Entitic vol] 9.4 fL Normal 8.1-13.5 [place] Comment on above: Performed By: #### MIGUEL ÁNGEL ORTIZ, PT #### [facility] [address] [place] [address]. [place] [address] [employer] Veget[employer]: Raciel Osullivan MD Platelets (Bld) [#/Vol] 244 10*3/uL Normal 138-453 [place] Comment on above: Performed By: #### C BETO BMP, PT #### [facility] [address] [place] [address] Farmer Vegetable: Raciel Osullivan MD RBC (Bld) [#/Vol] 4.66 10*6/uL Normal 3.95-5.11 [place] Comment on above: Performed By: #### C BETO BMP, PT #### [facility] [address] [place] [address] [employer] Veget[employer]: Raciel Osullivan MD WBC (Bld) [#/Vol] 5.5 10*3/uL Normal 3.5-11.3 [place] Comment on above: Performed By: #### C BETO BMP, PT #### [facility] [place] [address] Farmer Vegetable: Raciel Osullivan MD PTon 01-25-2021 INR Coag (PPP) [Relative time] 1.0 {INR} Normal [place] Comment on above: Result Comment: Non-therapeutic Range: INR = 0.9-1.2 Therapeutic Range: Moderate Anticoagulant Intensity: INR = 2.0-3.0 High Anticoagulant Intensity: INR = 2.5-3.5 Performed By: #### C BETO BMP, PT #### [facility] [address] [place] [address] Farmer Veget[employer]: Raceil Osullivan MD PT Coag (PPP) [Time] 12.6 s Normal 11.5-14.2 [facility] Comment on above: Performed By: #### C BETO BMP, PT #### [facility] [place] [address] Farmer Veget[employer]: Raciel Osullivan MD Vital Signs Date Time Vital Sign Value Performing Clinician Facility 03-31-2025 09:43-0400 Diastolic blood pressure 84 mm[Hg] Ewa Mary [facility] 03-31-2025 09:43-0400 Mean blood pressure 102 mm[Hg] Ewa Mary [facility] 03-31-2025 09:43-0400 Systolic blood pressure 138 mm[Hg] Ewa Mary [facility] 03-31-2025 09:18-0400 Blood Pressure Location Ewa Mary [facility] 03-31-2025 09:18-0400 Body temperature 98.6 [degF] Ewa Mary [facility] 03-31-2025 09:18-0400 Diastolic blood pressure 100 mm[Hg] Ewa Mary [facility] 03-31-2025 09:18-0400 Heart rate 76 /min Ewa Mary [facility] 03-31-2025 09:18-0400 Respiratory rate 16 /min Ewa Mary [facility] 03-31-2025 09:18-0400 Systolic blood pressure 154 mm[Hg] Ewa Mary [facility] 03-30-2025 15:25-0400 Body height 167.64 cm Yas Nance APRN Work Phone: [facility] 03-30-2025 15:25-0400 Body mass index (BMI) [Ratio] 35 kg/m2 Yas Nance APRN Work Phone: [facility] 03-30-2025 15:25-0400 Body temperature 97.4 [degF] Yas Chosaeed RN [facility] Work Phone: [facility] 03-30-2025 15:25-040 Body weight 98.42 kg Yas Nance RN [facility] Work Phone: [facility] 03-30-2025 15:25-0400 Diastolic blood pressure 86 mm[Hg] Yas Nance RN [facility] Work Phone: [facility] 03-30-2025 15:25-0400 Heart rate 74 /min Yas Nance RN [facility] Work Phone: [facility] 03-30-2025 [id number] SaO2% (BldA) [Mass fraction] 95 % Yas Nance RN [facility] Work Phone: [facility] 03-30-2025 15:25-040 Systolic blood pressure 136 mm[Hg] Yas Nance RN [facility] Work Phone: [facility] 03-22-2025 13:190400 Body height 167.64 cm [facility] 03-22-2025 13:19-0400 Body mass index (BMI) [Ratio] 34.3 kg/m2 [facility] 03-22-2025 13:19-0400 Body temperature 98.9 [degF] [facility] 03-22-2025 13:19-0400 Body weight 96.61 kg [facility] 03-22-2025 13:19-0400 Diastolic blood pressure 68 mm[Hg] [facility] 03-22-2025 13:19-0400 Heart rate 60 /min [facility] 03-22-2025 13:19-0400 SaO2% (BldA) [Mass fraction] 97 % [facility] 03-22-2025 13:19-0400 Systolic blood pressure 114 mm[Hg] [facility] 04-23-2024 [id number] Body height 167.64 cm [facility] 04-23-2024 15:28-0400 Body mass index (BMI) [Ratio] 34 kg/m2 [facility] 04-23-2024 15:28-0400 Body weight 95.7 kg [facility] 04-23-2024 15:28-0400 Diastolic blood pressure 74 mm[Hg] [facility] 04-23-2024 15:28-0400 Heart rate 65 /min [facility] 04-23-2024 15:28-0400 SaO2% (BldA) [Mass fraction] 96 % [facility] 04-23-2024 15:28-0400 Systolic blood pressure 114 mm[Hg] [facility] 03-13-2024 09:57-0400 Body height 167.64 cm [facility] 03-13-2024 09:57-0400 Body mass index (BMI) [Ratio] 33.9 kg/m2 [facility] 03-13-2024 09:57-0400 Body weight 95.25 kg [facility] 03-13-2024 09:57-0400 Diastolic blood pressure 80 mm[Hg] [facility] 03-13-2024 09:57-0400 Heart rate 74 /min [facility] 03-13-2024 09:57-0400 SaO2% (BldA) [Mass fraction] 98 % [facility] 03-13-2024 09:57-0400 Systolic blood pressure 116 mm[Hg] [facility] 03-23-2021 16:24-0400 Body height 167.6 cm Vianca Roldan MD Work Phone: [employer] Work Phone: 03-23-2021 16:24-0400 Body mass index (BMI) [Ratio] 32.28 kg/m2 Vianca Roldan MD Work Phone: [employer] Work Phone: 03-23-2021 16:24-0400 Body temperature 98.29 [degF] Vianca Roldan MD Work Phone: [employer] Work Phone: 03-23-2021 16:24-0400 Body weight 90.72 kg Vianca Roldan MD Work Phone: [employer] Work Phone: 03-23-2021 16:24-0400 Diastolic blood pressure 74 mm[Hg] Vianca Roldan MD Work Phone: [employer] Work Phone: 03-23-2021 16:24-0400 Heart rate 86 /min Vianca Roldan MD Work Phone: [employer] Work Phone: 03-23-2021 16:24-0400 Respiratory rate 16 /min Vianca Roldan MD Work Phone: [employer] Work Phone: 03-23-2021 16:24-0400 SaO2% (BldA) [Mass fraction] 98 % Vianca Roldan MD Work Phone: [employer] Work Phone: 03-23-2021 16:24-0400 Systolic blood pressure 140 mm[Hg] Vianca Roldan MD Work Phone: [employer] Work Phone: 02-09-2021 12:30-0400 Body Temperature 98.29 [degF] Steven Balese [employer] Work Phone: 02-09-2021 12:30-0400 BP Diastolic 69 mm[Hg] Steven Cartynte [employer] Work Phone: 02-09-2021 12:30-0400 BP Systolic 121 mm[Hg] Steven Gunner [employer] Work Phone: 02-09-2021 12:30-0400 Pulse (Heart Rate) 56 /min [facility] [employer] Work Phone: 02-09-2021 12:30-0400 Pulse Oximetry 99 % Steven Cartynte [employer] Work Phone: 02-09-2021 12:30-0400 Respiratory Rate 16 /min Steven Hernandez [facility] Work Phone: 02-09-2021 07:45-0400 BMI (Body Mass Index) 32.44 kg/m2 Steven Hernandez [facility] Work Phone: 02-09-2021 07:45-0400 Body weight 91.17 kg Steven Hernandez [facility] Work Phone: 02-09-2021 07:45-0400 Height 167.6 cm Steven Hernandez [facility] Work Phone: Encounters Encounter Date Encounter Type Care Provider Facility Start: 07-14-2025 ambulatory Ewa Hernandez Facility:[facility] Start: 03-31-2025 End: 03-31-2025 Lab Drop off Ewa Hernandez [facility] Start: 03-31-2025 End: 03-31-2025 ambulatory Ewa Hernandez Facility:[facility] Start: 03-31-2025 End: 03-31-2025 Patient encounter procedure Ewa Hernandez [facility] Start: 03-30-2025 End: 03-30-2025 ambulatory Yas Nance APRN Work Phone: [facility] Work Phone: Start: 03-30-2025 End: 03-30-2025 Patient encounter procedure Yas Nance APRN Work Phone: [facility] Work Phone: Start: 03-25-2025 ambulatory Ewa Hernandez Facility:[facility] Start: 03-22-2025 End: 03-22-2025 Departed Referred Yas Nance APRN Work Phone: [facility] [place] Work Phone: Start: 03-22-2025 End: 03-22-2025 ambulatory Yas Nance CARA Work Phone: [facility] Work Phone: Start: 03-22-2025 End: 03-22-2025 Patient encounter procedure [facility] Work Phone: Start: 04-23-2024 End: 04-23-2024 ambulatory [facility] Work Phone: Start: 04-23-2024 End: 04-23-2024 Patient encounter procedure [facility] Physician [facility] Work Phone: Start: 03-17-2024 Non-patient / Non-visit [facility] Physician [facility] [facility] Work Phone: Start: 03-16-2024 Non-patient / Non-visit [facility] Physician [facility] Work Phone: Start: 03-13-2024 End: 03-13-2024 ambulatory [facility] Work Phone: Start: 03-13-2024 End: 03-13-2024 Patient encounter procedure [facility] Physician [facility] Work Phone: Start: 02-18-2023 End: 02-19-2023 ambulatory VITA FUENTESJESUS [facility] Start: 02-18-2023 End: 02-18-2023 Subsequent hospital visit by physician Will Forrester MD Work Phone: [facility] Comment on above: Vaginal discharge Start: 09-30-2022 End: 10-01-2022 ambulatory [place] HADLEYKATJA [facility] Start: 09-30-2022 End: 09-30-2022 Subsequent hospital visit by physician Will Forrester MD Work Phone: [facility] Comment on above: Viral URI Start: 04-22-2022 End: 04-22-2022 Subsequent hospital visit by physician Will Forrester MD Work Phone: [facility] Comment on above: Acute cystitis witho ut hematuria Start: 03-26-2022 End: 03-26-2022 Subsequent hospital visit by physician Will Forrester MD Work Phone: [facility] Comment on above: Frequent urination Start: 12-03-2021 End: 12-03-2021 Subsequent hospital visit by physician Will Forrester MD Work Phone: [facility] Comment on above: Acute URI Start: 03-23-2021 End: 03-23-2021 Emergency department patient visit VIANCA ROLDAN [place] Start: 03-23-2021 End: 03-23-2021 ambulatory [facility] Start: 03-23-2021 End: 03-23-2021 Emergency department patient visit Vianca Roldan MD Work Phone: [facility] ED Comment on above: Acute deep vein thro mbosis (DVT) of popliteal vein of left lower extremity (HCC) (Primary Dx) Start: 03-23-2021 End: 03-23-2021 Subsequent hospital visit by physician [facility] Comment on above: Venous insufficiency of left leg (Primary Dx); Varicose veins of lower extremity with pain, left Start: 02-09-2021 End: 02-09-2021 ambulatory [facility] Start: 02-09-2021 End: 02-09-2021 Subsequent hospital visit by physician Steven Martino Work Phone: [facility] Start: 02-05-2021 End: 02-06-2021 ambulatory [facility] Start: 02-05-2021 End: 02-05-2021 Subsequent hospital visit by physician To[facility] Covid Screening Schedule [facility] Covid Screening Comment on above: Preop testing (Prima ry Dx) Start: 01-25-2021 End: 01-30-2021 ambulatory STEVEN C GUNNER [place] Procedures Date Procedure Procedure Detail Performing Clinician Start: 03-22-2025 Urine culture Yas Nacne APRN Work Phone: Start: 03-23-2021 Dup-scan xtr veins unilateral/limited study Steven Martino MD Work Phone: Colonoscopy Ewa Gerarda Hysterectomy Ewa Mary Swelling of first metatarsal joint of hallux of right foot (disorder) [facility] Mary Tubal ligation done Ewa Diana garcia Plan of Treatment Date Care Activity Detail Author Start: 10-17-2027 DTaP/Tdap/Td vaccine (2 - Td or Tdap) DTaP/Tdap/Td vaccine (2 - Td or Tdap) [facility] Start: 10-17-2027 DTaP/Tdap/Td vaccine (2 - Td) DTaP/Tdap/Td vaccine (2 - Td) [facility] Work Phone: Start: 03-23-2025 [facility] Work Phone: Start: 03-22-2025 Bacteria identified in Urine by Culture Urine Culture [facility] Start: 03-22-2025 Urine culture [facility] Start: 03-16-2024 Patient referral [facility] Work Phone: Start: 06-18-2023 Influenza vaccination Flu vacc ine (Season Ended) [facility] Start: 12-03-2022 Depression Screen Depression Screen [facility] Start: 07-19-2022 Influenza vaccination Flu vacc ine (Season Ended) [facility] Start: 06-18-2022 Influenza vaccination Flu vaccine (# 1) [facility] Start: 10-02-2021 Screening for malign ant neoplasm of breast Breast cancer screen [facility] Start: 07-19-2021 Influenza vaccination [facility] [employer] Start: 02-09-2021 End: 02-09-2021 Hospital Encounter [facility] Comment on above: LEFT GREATER SAPHENO US VEIN ABLATION RADIOFREQUENCY ENDOSCOPIC Start: 01-31-2021 End: 01-31-2022 COVID-19 COVID-19 Lab Routine Preop testing Expected: 01/31/2021, Expires: 01/31/2022 [facility] Phone: Comment on above: Expected: 01/31/2021 , Expires: 01/31/2022 Start: 01-24-2021 Lipid panel Lipids [facility] [employer] Start: 07-19-2020 Influenza vaccination Flu vaccine (# 1) [facility] Phone: Start: 2014 Screening for malign ant neoplasm of breast [email or web address] Start: 2014 Screening for malign ant neoplasm of colon Colon cancer screen colonoscopy [employer] Phone: Start: 2014 Shingles Vaccine (1 of 2) Box gles Vaccine (1 of 2) [facility] [employer] Start: 2009 Screening for malign ant neoplasm of colon [facility] [employer] Start: 2004 [facility] Start: 1985 Screening for malign ant neoplasm of cervix Cervical cancer screen [facility] Phone: Start: 1982 Hepatitis C screening Hepatitis C [facility] Start: 1980 COVID-19 Vaccine (1) COVID-19 Vaccin e (1) [employer] Phone: Start: 1979 HIV screening HIV screen [facility] Start: 1976 Depression Screen Depression Screen [facility] [employer] Start: 1969 COVID-19 Vaccine (1) COVID-19 Vaccin e (1) [facility] [employer] Start: 1964 COVID-19 Vaccine (#1) COVID-19 Vacci ne (#1) [facility] Start: 1964 Hepatitis C screening Hepatitis C [facility] Comprehensive metabo lic 2000 panel - Serum or Plasma [facility] End: 02-01-2021 COVID-19 COVID-19 Lab Routine Preop testing 1 Occurrences starting 02/01/2021 until 02/01/2021 [employer] Phone: Comment on above: 1 Occurrences starti ng 02/01/2021 until 02/01/2021 COVID-19 COVID-19 Lab Rou elif Preop testing 02/05/2021 11:20 AM EDT [employer] Phone: End: 09-30-2022 COVID-19 [employer] Phone: Comment on above: 1 Occurrences starti ng 09/30/2022 until 09/30/2022 End: 03-26-2022 Culture, Urine [facility] Phone: Comment on above: 1 Occurrences starti ng 03/26/2022 until 03/26/2022 End: 04-22-2022 Culture, Urine [employer] Phone: Comment on above: 1 Occurrences starti ng 04/22/2022 until 04/22/2022 MG Breast - bilatera l Screening [facility] Oxygen therapy [[facility] Data Set] Initiate Oxygen Therapy Protocol Respiratory Care Routine Daily until discontinued starting 02/09/2021 [employer] Phone: Comment on above: Daily until disconti nued starting 02/09/2021 Patient referral [facility] Work Phone: Phase I & II - meter ed glucose Phase I & II - metered glucose Point of Care Testing Routine As Needed until discontinued starting 02/09/2021 [employer] Phone: Comment on above: As Needed until disc ontinued starting 02/09/2021 End: 12-03-2021 Strep A DNA probe, amplification [employer] Phone: Comment on above: 1 Occurrences starti ng 12/03/2021 until 12/03/2021 End: 02-18-2023 Vaginitis DNA Probe [employer] Phone: Comment on above: 1 Occurrences starti ng 02/18/2023 until 02/18/2023 [facility] Immunizations Immunization Date Immunization Notes Care Provider Fa [facility]juan luis 10-17-2017 tetanus toxoid, redu noah diphtheria toxoid, and acellular pertussis vaccine, adsorbed Will Forrester MD Work Phone: [facility] Work Phone: Payers Date Payer Category Payer Private Health Insurance [id number] 2025 Private Health Insurance [id number] 2025 Private Health Insurance [id number] 2025 Self-pay 2021 Unknown [id number] 2020 Unknown [id number] 1964 Unknown [id number] 2.16.8 [id number] 1964 Unknown [id number] 2.16.8 [id number] 1964 Unknown [id number] 2.16.8 [id number] 1964 Unknown [id number] 2.16.8 [id number] 1964 Unknown [id number] 2.16.8 [id number] 1964 Unknown [id number] 2.16. [id number] 1964 Unknown [id number] 2.16. [id number] 1964 Unknown [id number] 2.16.8 [id number] 1964 Unknown [id number] 2.16.8 [id number] 1964 Unknown [id number] 2.16.8 [id number] 1964 Unknown [id number] 2.16.8 [id number] Unknown [id number] 2.16.8 [id number] Social History Date Type Detail Facility Start: 01-25-2021 End: 04-23-2024 Tobacco smoking status [facility] Former smoker [employer] Phone: Start: 11-18-1986 End: 11-18-1989 History of tobacco use Current smoker [employer] Phone: Start: 01-25-2021 End: 09-30-2022 Tobacco use and exposure Never used [employer] Phone: Start: 01-25-2021 End: 02-18-2023 Alcohol intake Lifetime non-drinker (finding) [employer] Phone: Start: 01-25-2021 End: 12-03-2021 History SDOH Alcohol Frequency 1 [employer] Phone: Start: 1965 Sex Assigned At Not on file M [employer] Phone: Exposure to SARS-CoV -2 (event) Not sure [facility] Phone: Start: 01-25-2021 End: 09-30-2022 Cigarettes smoked current (pack per day) - Reported 1 [employer] Phone: Start: 12-03-2021 History SDOH Financial 5 [employer] Phone: Start: 11-18-1986 End: 11-18-1989 History of tobacco use Cigarette Smoker [facility] Work Phone: Start: 1965 Sex Assigned At Female F [facility] Start: 03-22-2025 End: 03-30-2025 Sex Female (finding) [facility] Start: 03-31-2025 Tobacco smoking status Never s moked tobacco (finding) [facility] Tobacco smoking status Never [facility] Sexual Orientation [facility] Sex Assigned At Female [facility] Functional Status Date Assessment Result Facility 03-31-2025 Functional Status N/A [facility] Clinical Notes 03-23-2021 to 03-31-2025 Note Date & Type Note Facility 03-31-2025 Hospital Discharge instructions Patient Education 03/31/2025 10:46:56 Urinary Incontinence Urinary Incontinence Urinary incontinence refers to a condition in which a person is unable to control where and when to pass urine. A person with this condition will urinate involuntarily. This means that the person urinates when he or she does not mean to. What are the causes? This condition may be caused by: Medicines. Infections. Constipation. Overactive bladder muscles. Weak bladder muscles. Weak pelvic floor muscles. These muscles provide support for the bladder, intestine, and, in women, the uterus. Enlarged prostate in men. The prostate is a gland near the bladder. When it gets too big, it can pinch the urethra. With the urethra blocked, the bladder can weaken and lose the ability to empty properly. Surgery. Emotional factors, such as anxiety, stress, or post-traumatic stress disorder (PTSD). Spinal cord injury, nerve injury, or other neurological conditions. Pelvic organ prolapse. This happens in women when organs move out of place and into the vagina. This movement can prevent the bladder and urethra from working properly. What increases the risk? The following factors may make you more likely to develop this condition: Age. The older you are, the higher the risk. Obesity. Being physically inactive. and childbirth. Menopause. Diseases that affect the nerves or spinal cord. Long-term, or chronic, coughing. This can increase pressure on the bladder and pelvic floor muscles. What are the signs or symptoms? Symptoms may vary depending on the type of urinary incontinence you have. They include: A sudden urge to urinate, and passing urine involuntarily before you can get to a bathroom (urge incontinence). Suddenly passing urine when doing activities that force urine to pass, such as coughing, laughing, exercising, or sneezing (stress incontinence). Needing to urinate often but urinating only a small amount, or constantly dribbling urine (overflow incontinence). Urinating because you cannot get to the bathroom in time due to a physical disability, such as arthritis or injury, or due to a communication or thinking problem, such as Alzheimer's disease (functional incontinence). How is this diagnosed? This condition may be diagnosed based on: Your medical history. A physical exam. Tests, such as: ?Urine tests. ?X-rays of your kidney and bladder. ?Ultrasound. ?CT scan. ?Cystoscopy. In this procedure, a health care provider inserts a tube with a light and camera (cystoscope) through the urethra and into the bladder to check for problems. ?Urodynamic testing. These tests assess how well the bladder, urethra, and sphincter can store and release urine. There are different types of urodynamic tests, and they vary depending on what the test is measuring. To help diagnose your condition, your health care provider may recommend that you keep a log of when you urinate and how much you urinate. How is this treated? Treatment for this condition depends on the type of incontinence that you have and its cause. Treatment may include: Lifestyle changes, such as: ?Quitting smoking. ?Maintaining a healthy weight. ?Staying active. Try to get 150 minutes of moderate-intensity exercise every week. Ask your health care provider which activities are safe for you. ?Eating a healthy diet. ?Avoid high-fat foods, like fried foods. ?Avoid refined carbohydrates like white bread and white rice. ?Limit how much alcohol and caffeine you drink. ?Increase your fiber intake. Healthy sources of fiber include beans, whole grains, and fresh fruits and vegetables. Behavioral changes, such as: ?Pelvic floor muscle exercises. ?Bladder training, such as lengthening the amount of time between bathroom breaks, or using the bathroom at regular intervals. ?Using techniques to suppress bladder urges. This can include distraction techniques or controlled breathing exercises. Medicines, such as: ?Medicines to relax the bladder muscles and prevent bladder spasms. ?Medicines to help slow or prevent the growth of a man's prostate. ?Botox injections. These can help relax the bladder muscles. Treatments, such as: ?Using pulses of electricity to help change bladder reflexes (electrical nerve stimulation). ?For women, using a medical assistant prn to prevent urine leaks. This is a small, tampon-like, disposable device that is inserted into the urethra. ?Injecting collagen or carbon beads (bulking agents) into the urinary sphincter. These can help thicken tissue and close the bladder opening. ?Surgery. Follow these instructions at home: Lifestyle Limit alcohol and caffeine. These can fill your bladder quickly and irritate it. Keep yourself clean to help prevent odors and skin damage. Ask your health care provider about special skin creams and cleansers that can protect the skin from urine. Consider wearing pads or adult diapers. Make sure to change them regularly, and always change them right after experiencing incontinence. General instructions Take tolc-kwe-eccqyox and prescription medicines only as told by your health care provider. Use the bathroom about every 3 4 hours, even if you do not feel the need to urinate. Try to empty your bladder completely every time. After urinating, wait a minute. Then try to urinate again. Make sure you are in a relaxed position while urinating. If your incontinence is caused by nerve problems, keep a log of the medicines you take and the times you go to the bathroom. Keep all follow-up visits. This is important. Where to find more information National [place] of Diabetes and Digestive and Kidney Diseases: www.niddk.nih.gov [place] [facility] [facility] [employer]: www.urologyhealth.org Contact a health care provider if: You have pain that gets worse. Your incontinence gets worse. Get help right away if: You have a fever or chills. You are unable to urinate. You have redness in your groin area or down your legs. Summary Urinary incontinence refers to a condition in which a person is unable to control where and when to pass urine. This condition may be caused by medicines, infection, weak bladder muscles, weak pelvic floor muscles, enlargement of the prostate (in men), or surgery. Factors such as older age, obesity, and childbirth, menopause, neurological diseases, and chronic coughing may increase your risk for developing this condition. Types of urinary incontinence include urge incontinence, stress incontinence, overflow incontinence, and functional incontinence. This condition is usually treated first with lifestyle and behavioral changes, such as quitting smoking, eating a healthier diet, and doing regular pelvic floor exercises. Other treatment options include medicines, bulking agents, medical devices, electrical nerve stimulation, or surgery. This information is not intended to replace advice given to you by your health care provider. Make sure you discuss any questions you have with your health care provider. Document Revised: 06/09/2021 Document Reviewed: 06/09/2021 [employer] Patient Education 2023 [employer]. 03/31/2025 10:46:55 Overactive Bladder, Adult Overactive Bladder, Adult Overactive bladder is a condition in which a person has a sudden and frequent need to urinate. A person might also leak urine if he or she cannot get to the bathroom fast enough (urinary incontinence). Sometimes, symptoms can interfere with work or social activities. What are the causes? Overactive bladder is associated with poor nerve signals between your bladder and your brain. Your bladder may get the signal to empty before it is full. You may also have very sensitive muscles that make your bladder squeeze too soon. This condition may also be caused by other factors, such as: Medical conditions: ?Urinary tract infection. ?Infection of nearby tissues. ?Prostate enlargement. ?Bladder stones, inflammation, or tumors. ?Diabetes. ?Muscle or nerve weakness, especially from these conditions: ?A spinal cord injury. ?Stroke. ?Multiple sclerosis. ?Parkinson's disease. Other causes: ?Surgery on the uterus or urethra. ?Drinking too much caffeine or alcohol. ?Certain medicines, especially those that eliminate extra fluid in the body (diuretics). ?Constipation. What increases the risk? You may be at greater risk for overactive bladder if you: Are an older adult. Smoke. Are going through menopause. Have prostate problems. Have a neurological disease, such as stroke, dementia, Parkinson's disease, or multiple sclerosis (MS). Eat or drink alcohol, spicy food, caffeine, and other things that irritate the bladder. Are overweight or obese. What are the signs or symptoms? Symptoms of this condition include a sudden, strong urge to urinate. Other symptoms include: Leaking urine. Urinating 8 or more times a day. Waking up to urinate 2 or more times overnight. How is this diagnosed? This condition may be diagnosed based on: Your symptoms and medical history. A physical exam. Blood or urine tests to check for possible causes, such as infection. You may also need to see a health care provider who specializes in urinary tract problems. This is called a urologist. How is this treated? Treatment for overactive bladder depends on the cause of your condition and whether it is mild or severe. Treatment may include: Bladder training, such as: ?Learning to control the urge to urinate by following a schedule to urinate at regular intervals. ?Doing Kegel exercises to strengthen the pelvic floor muscles that support your bladder. Special devices, such as: ?Biofeedback. This uses sensors to help you become aware of your body's signals. ?Electrical stimulation. This uses electrodes placed inside the body (implanted) or outside the body. These electrodes send gentle pulses of electricity to strengthen the nerves or muscles that control the bladder. ?Women may use a plastic device, called a pessary, that fits into the vagina and supports the bladder. Medicines, such as: ?Antibiotics to treat bladder infection. ?Antispasmodics to stop the bladder from releasing urine at the wrong time. ?Tricyclic antidepressants to relax bladder muscles. ?Injections of botulinum toxin type A directly into the bladder tissue to relax bladder muscles. Surgery, such as: ?A device may be implanted to help manage the nerve signals that control urination. ?An electrode may be implanted to stimulate electrical signals in the bladder. ?A procedure may be done to change the shape of the bladder. This is done only in very severe cases. Follow these instructions at home: Eating and drinking Make diet or lifestyle changes recommended by your health care provider. These may include: ?Drinking fluids throughout the day and not only with meals. ?Cutting down on caffeine or alcohol. ?Eating a healthy and balanced diet to prevent constipation. This may include: ?Choosing foods that are high in fiber, such as beans, whole grains, and fresh fruits and vegetables. ?Limiting foods that are high in fat and processed sugars, such as fried and sweet foods. Lifestyle Lose weight if needed. Do not use any products that contain nicotine or tobacco. These include cigarettes, chewing tobacco, and vaping devices, such as e-cigarettes. If you need help quitting, ask your health care provider. General instructions Take opsg-vre-mhohqlq and prescription medicines only as told by your health care provider. If you were prescribed an antibiotic medicine, take it as told by your health care provider. Do not stop taking the antibiotic even if you start to feel better. Use any implants or pessary as told by your health care provider. If needed, wear pads to absorb urine leakage. Keep a log to track how much and when you drink, and when you need to urinate. This will help your health care provider monitor your condition. Keep all follow-up visits. This is important. Contact a health care provider if: You have a fever or chills. Your symptoms do not get better with treatment. Your pain and discomfort get worse. You have more frequent urges to urinate. Get help right away if: You are not able to control your bladder. Summary Overactive bladder refers to a condition in which a person has a sudden and frequent need to urinate. Several conditions may lead to an overactive bladder. Treatment for overactive bladder depends on the cause and severity of your condition. Making lifestyle changes, doing Kegel exercises, keeping a log, and taking medicines can help with this condition. This information is not intended to replace advice given to you by your health care provider. Make sure you discuss any questions you have with your health care provider. Document Revised: 07/24/2021 Document Reviewed: 07/24/2021 [employer] Patient Education 2023 [employer]. Follow Up Care 03/25/2025 15:37:37 With:Ewa Hernandez PA-C, LU[facility] Address: When: Unknown Comments:F/U in 3 months w/ P[facility] 03-31-2025 Note Urology Office/Clini c Note Chief Complaint referral - incomlete bladder emptying HPI Staff 59 yr old female referred by Yas Nance for felling of incomplete bladder emptying. pt having mixed incontinence, wears panty liner, pt states on the lower abdomen right side she will get a pain when standing up. pt denies any visible blood in urine. small blood in UA sample today. BBSQ - 22 History of Present Illness I have reviewed and verified the staff HPI to be accurate for this encounter. Review of Systems PHQ Score Initial Depression Screen Score: 0 SCORE no fever, chills, malaise, myalgia. no abdominal pain, nausea, vomiting. Physical Exam Vitals & Measurements T: 37 ???C(Oral) HR: 76(Peripheral) RR: 16 BP: 138/84 HT: 168 cm HT: 66 in WT: 97.2 kg WT: 214.289 lb BMI: 34.44 General: Well developed, well nourished, in no acute distress. 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 Overactive bladder (N32.81: Overactive bladder) Labs 03/17/2024 - Cr 0.94, GFR > 60 UCX 03/22/25 - <9k mixed bacterial skin contaminants BBSQ 22 UA today w/ small blood and small bili only. Denies sxs of infection or gross hematuria. PVR 0 ml today Reports urinary frequency and urgency with leakage has been ongoing for years . Voids every 30 mins-1 hour. Reports occasional UUI. Wears pads, changes 2-3x daily. She drinks mostly soda throughout the day, 2-3 16 oz bottles of Mountain Dew or Pepsi. Drinks 1 16 oz bottle of water daily. No coffee/alcohol intake. Discussed bladder irritants in detail w/ patient. She denies issues with constipation. No sxs of infection. Today, we discussed pathophysiology of overactive bladder/UUI. Patient informed that first line treatment for her sxs is behavioral modifications, which includes timed voids, fluid balance, avoiding bladder stimulants such caffeine, pelvic floor muscle exercises. Pt was instructed on doing 3 Kegels when she gets the urge to void before going to the bathroom in an attempt to control urinary urges. Handouts provided. Discussed additional tx options for bothersome urinary sx including oral medications, Botox, SNM. Medication management includes anticholinergics and beta-3 agonists. Beta-3's (Myrbetriq/Gemtesa) are often preferable due to lower side effect profile, which include possible increase in blood pressure in a small minority of patients, however insurance does not always cover these meds. We also discussed anticholinergic medications which can have the side effects of dry eyes, dry mouth, constipation and rarely cognitive changes. Patient would like to trial Myrbetriq 25 mg qd. If Beta-3's not covered, will send anticholinergic. Pt understands if medications are not effective, we will consider next steps which could include cysto, urodynamics, Botox, SNM. Brief discussion today regarding Botox/SNM but did not go into elaborate detail. I instructed the patient to contact me immediately if she has any significant side effects from medication , including risk of urinary retention. Pt advised to discontinue if bothersome SE occur. Pt verbalizes understanding. All questions answered. -Start Myrbetriq 25mg PO daily -If cost prohibitive, will send Gemtesa 75mg PO daily -If both cost-prohibitive, will send Trospium 20mg PO BID -Increase water intake, avoid bladder irritants -Timed voids, double voids -Avoid constipation -F/U 3 months w/ PVR, call sooner if needed Ordered: mirabegron, 25 mg = 1 tab(s), Oral, Daily, X 30 day(s), # 30 tab(s), Refills(s) 3, MAGGIE, Pharmacy: [facility]/pharmacy #[id number], 168, cm, 03/31/25 9:34:00 EDT, Height/Length Dosing, 97.2, kg, 03/31/25 9:34:00 EDT, Weight Dosing 2. Urge incontinence (N39.41: Urge incontinence) Occasional UUI w/ severe urgency or if she delays void for too long. Wears pads, changes 2-3x/day. -See #1 Ordered: mirabegron, 25 mg = 1 tab(s), Oral, Daily, X 30 day(s), # 30 tab(s), Refills(s) 3, , Pharmacy: [facility]/pharmacy #[id number], 168, cm, 03/31/25 9:34:00 EDT, Height/Length Dosing, 97.2, kg, 03/31/25 9:34:00 EDT, Weight Dosing Urinalysis with Micro Urine Culture 3. Feeling of incomplete bladder emptying (R39.14: Feeling of incomplete bladder emptying) Feels she does not empty completely at times given how frequently she has sensation to void. Reports intermittent post void dribbling. She is s/p hysterectomy. PVR 0 ml today - pt reassured she is emptying well. -Voiding maneuvers, double voids Ordered: 45593 Measure Post Void residual urine and/or bladder capacity by US- non-imaging Urinalysis with Micro Urine Culture Urnls Dip Stick Auto w/o Microscopy POC [id number] 4. Abdominal pain (R10.9: Unspecified abdominal pain) She is s/p hysterectomy. Today, she reports intermittent RLQ abd pain. Worse w/ standing for long periods of time. Does not seem correlated to urination per pt. UA not suspicious for infection today. Denies hx of kidne (more content not included)... [facility] Comment on above: Result Comment: Elec tronically Signed By: Mary ESTES, Ewa\.br\Date and Time Signed: 03/31/25 10:50 EDT 03-31-2025 Note Patient Education Obstetrics and Gynecology Overactive Bladder, Adult Overactive bladder is a condition in which a person has a sudden and frequent need to urinate. A person might also leak urine if he or she cannot get to the bathroom fast enough (urinary incontinence). Sometimes, symptoms can interfere with work or social activities. What are the causes? Overactive bladder is associated with poor nerve signals between your bladder and your brain. Your bladder may get the signal to empty before it is full. You may also have very sensitive muscles that make your bladder squeeze too soon. This condition may also be caused by other factors, such as: ??? Medical conditions: ? Urinary tract infection. ? Infection of nearby tissues. ? Prostate enlargement. ? Bladder stones, inflammation, or tumors. ? Diabetes. ? Muscle or nerve weakness, especially from these conditions: ? A spinal cord injury. ? Stroke. ? Multiple sclerosis. ? Parkinson's disease. ??? Other causes: ? Surgery on the uterus or urethra. ? Drinking too much caffeine or alcohol. ? Certain medicines, especially those that eliminate extra fluid in the body (diuretics). ? Constipation. What increases the risk? You may be at greater risk for overactive bladder if you: ??? Are an older adult. ??? Smoke. ??? Are going through menopause. ??? Have prostate problems. ??? Have a neurological disease, such as stroke, dementia, Parkinson's disease, or multiple sclerosis (MS). ??? Eat or drink alcohol, spicy food, caffeine, and other things that irritate the bladder. ??? Are overweight or obese. What are the signs or symptoms? Symptoms of this condition include a sudden, strong urge to urinate. Other symptoms include: ??? Leaking urine. ??? Urinating 8 or more times a day. ??? Waking up to urinate 2 or more times overnight. How is this diagnosed? This condition may be diagnosed based on: ??? Your symptoms and medical history. ??? A physical exam. ??? Blood or urine tests to check for possible causes, such as infection. You may also need to see a health care provider who specializes in urinary tract problems. This is called a urologist. How is this treated? Treatment for overactive bladder depends on the cause of your condition and whether it is mild or severe. Treatment may include: ??? Bladder training, such as: ? Learning to control the urge to urinate by following a schedule to urinate at regular intervals. ? Doing Kegel exercises to strengthen the pelvic floor muscles that support your bladder. ??? Special devices, such as: ? Biofeedback. This uses sensors to help you become aware of your body's signals. ? Electrical stimulation. This uses electrodes placed inside the body (implanted) or outside the body. These electrodes send gentle pulses of electricity to strengthen the nerves or muscles that control the bladder. ? Women may use a plastic device, called a pessary, that fits into the vagina and supports the bladder. ??? Medicines, such as: ? Antibiotics to treat bladder infection. ? Antispasmodics to stop the bladder from releasing urine at the wrong time. ? Tricyclic antidepressants to relax bladder muscles. ? Injections of botulinum toxin type A directly into the bladder tissue to relax bladder muscles. ??? Surgery, such as: ? A device may be implanted to help manage the nerve signals that control urination. ? An electrode may be implanted to stimulate electrical signals in the bladder. ? A procedure may be done to change the shape of the bladder. This is done only in very severe cases. Follow these instructions at home: Eating and drinking ??? Make diet or lifestyle changes recommended by your health care provider. These may include: ? Drinking fluids throughout the day and not only with meals. ? Cutting down on caffeine or alcohol. ? Eating a healthy and balanced diet to prevent constipation. This may include: ? Choosing foods that are high in fiber, such as beans, whole grains, and fresh fruits and vegetables. ? Limiting foods that are high in fat and processed sugars, such as fried and sweet foods. Lifestyle ??? Lose weight if needed. ??? Do not use any products that contain nicotine or tobacco. These include cigarettes, chewing tobacco, and vaping devices, such as e-cigarettes. If you need help quitting, ask your health care provider. General instructions ??? Take eypp-jdz-psrnzhk and prescription medicines only as told by your health care provider. ??? If you were prescribed an antibiotic medicine, take it as told by your health care provider. Do not stop taking the antibiotic even if you start to feel better. ??? Use any implants or pessary as told by your health care provider. ??? If needed, wear pads to absorb urine leakage. ??? Keep a log to track how much and when you drink, and whe (more content not included)... 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 + + + + + !Common Femoral !Yes !Yes !None ! + + + + + !Prox Femoral !Yes !Yes !None ! + + + + + !Mid Femoral !Yes !Yes !None ! + + + + + !Dist Femoral !Yes !Yes !None ! + + + + + !Deep Femoral !Yes !Yes !None ! + + + + + !Popliteal !Yes !No !Acute ! + + + + + !Sapheno Femoral Junction !Yes !Yes !None ! + + + + + !PTV !Yes !Yes !None ! + + + + + !Peroneal !Yes !Yes !None ! + + + + + !Gastroc !Yes !Yes !None ! + + + + + !SSV !Yes !Yes !None ! + + + + + Left Doppler Measurements + +------+------+ + !Location !Signal!Reflux!Reflux (msec) ! + +------+------+ + !Common Femoral !Phasic! ! ! + +------+------+ + !Prox Femoral !Phasic! ! ! + +------+------+ + !Popliteal !Absent! ! ! + +------+------+ + [facility] Phone: 1([phone]) 524-944005-06-2021 Hospital Discharge instructions* Instructions* Vianca Roldan MD - 03/23/2021 As we discussed here in the emergency room please take the Eliquis as instructed. I recommend follow-up with Dr. Delgadillo at his earliest next appointment. If you do experience any chest pain or difficulty breathing I recommend prompt return to the emergency room although this is unlikely now that we have started proper therapy. * Attachments The following attachments cannot be sent through Care Everywhere. * DVT (Deep Vein Thrombosis) (Malay) [facility] + Plan note Future Appointments Appointment Date:07/14/2025 10:00:00 AM Scheduled Provider:Ewa Hernandez PA-C Location:[facility] Appointment Type:URO Office Visit [facility] evaluation + Plan note Future Appointments Appointment Date:07/14/2025 10:00:00 AM Scheduled Provider:Ewa Hernandez PA-C Location:[facility] Appointment Type:URO Office Visit Diagnostic Tests Pending * Urine Culture 03/31/25 [facility] Evaluation note* Diagnosis Acute deep vein thrombosis (DVT) of popliteal vein of left lower extremity (HCC)- [facility] [email or web address] [facility]* Diagnosis Venous insufficiency of left leg- Primary Varicose veins of lower extremity with pain, left documented in this encounter [facility] Phone: evaluation note* Diagnosis Acute URI Acute upper respiratory infections of unspecified site [facility]* Diagnosis Frequent urination Urinary frequency [facility]: [email or web address] note* Diagnosis Acute cystitis without hematuria Acute cystitis documented in this encounter [employer] Phone: [email or web address] note* Diagnosis Viral URI Acute upper respiratory infections of unspecified site documented in this encounter [employer] Phone: evalchbzio note* Diagnosis Vaginal discharge Leukorrhea, not specified as infective documented in this encounter [employer] Phone: evaloihoup note* Diagnosis Onset Date Resolution Status Chronic back pain acute Degenerative disc disease ac maria c Maxillary sinusitis acute Medication monitoring encounter acute Onychomycosis acute Screening for breast cancer acute Screening for lipid disorders acute Screening for metabolic disorder acute Screening, deficiency anemia, iron acute UTI (urinary tract infection) acute [facility] Work Phone: Evaluation note* Diagnosis Onset Date Resolution Status Chronic back pain acute Degenerative disc disease ac maria c Maxillary sinusitis acute Medication monitoring encounter acute Onychomycosis acute Screening for breast cancer acute Screening for lipid disorders acute Screening for metabolic disorder acute Screening, deficiency anemia, iron acute UTI (urinary tract infection) acute Maxillary sinusitis acute [facility] Work Phone: Evaluation noteNo assessment information available [facility] Work Phone: Hospital course Narrative No data available for this section [facility] Hospital Discharge instructions No data available for this section [facility] Progress note No data available for this section [facility] Assessments Diagnosis Preop testing- Primary Preoperative examination, unspecified Diagnosis Varicose veins of left lower extremity with pain- Primary Varicose veins of lower extremities with other complications Venous insufficiency of left leg Advance Directives No Advanced Directives Records FoundDocuments on File Type Date Recorded Patient Phone Engineer Expl anation ACP-Advance Directive ACP-Power of Bearingizer Documents on File Type Date Recorded Patient Phone Engineer Expl anation ACP-Advance Directive ACP-Power of Bearingizer Advance Directive Response Recorded Date/ Time Advance Directives No March 05, 2 024 1:27pm Discharge Instructions * Instructions* Andie Solano RN - 02/09/2021 Dressing can be removed [...] left lower extremity (HCC) Vianca Roldan MD [address] [place] [address] [facility] [address] [place] [address] Scheduling Instructions [facility] [address] [place] [address] Status Reason Specialty Diagnoses / Procedures Referre d By Contact Referred To Contact Closed Radiology Diagnoses Varicose veins of lower extremity with pain, left Procedures VL DUP LOWER EXTREMITY VENOUS LEFT Steven Martino MD [address] [facility] [address] [place] [address] Summary Purpose Family History No Family History Records FoundNo Family History Records FoundNo Family History Records Found No data available for this section No data available for this section No Family History Records FoundNo Family History Records FoundNo Family History Records FoundNo Family History Records Found Chief Complaint and Reason for Visit Chief Complaint establish Reason for Visit Chronic back pain Degenerative disc disease Maxillary sinusitis Medication monitoring encounter Onychomycosis Screening for breast cancer Screening for lipid disorders Screening for metabolic disorder Screening, deficiency anemia, iron UTI (urinary tract infection) Chief Complaint establish persistant cough Reason for Visit Chronic back pain Degenerative disc disease Maxillary sinusitis Medication monitoring encounter Onychomycosis Screening for breast cancer Screening for lipid disorders Screening for metabolic disorder Screening, deficiency anemia, iron UTI (urinary tract infection) Maxillary sinusitis Chief Complaint Admit Date Frequency, bumps on right foot March 22, 2025 1:14pm Chief Complaint Admit Date Frequency, bumps on right foot March 22, 2025 1:14pm R35.0 March 22, 2025 1:45pm Itchy Arms/Chest March 30, 2025 3:19p m Reason for Visit Admit Date Feeling of incomplete bladder emptying M ay 2024 1:14pm Frequency of urination March 22, 2025 1:1 4pm Wart March 22, 2025 1:14pm Pruritus, unspecified March 30, 2025 3:1 9pm Additional Source Comments Reason for Visit (unrecogniz ed section and content) Status Reason Specialty Diagnoses / Procedures Referre d By Contact Referred To Contact Diagnoses Varicose veins of leg with pain, left VARICOSE VEINS WITH PAIN LEFT Procedures IN ENDOVENOUS RF, 1ST VEIN LEFT GREATER SAPHENOUS VEIN ABLATION RADIOFREQUENCY ENDOSCOPIC Steven Martino MD [address] [facility] [address] [place] [address] [facility] Reason Comments Leg Pain vein stripping 02/09, throbbing to left lower leg started a week after surgery, doppler today positive for DVT Status Reason Specialty Diagnoses / Procedures Referre d By Contact Referred To Contact Closed Radiology Diagnoses Varicose veins of lower extremity with pain, left Procedures VL DUP LOWER EXTREMITY VENOUS LEFT Steven Martino MD [address] [facility] [address] [place] [address] Ordered Prescriptions (unrec ognized section and content) Prescription Sig Dispensed Refills Start Date End Da te apixaban starter pack (ELIQUIS DVT/PE STARTER PACK) 5 MG TBPK tablet Take 1 tablet by mouth See Admin Instructions 74 tablet 0 03/23/2021 INFORMATION SOURCE (unrecogn ized section and content) DATE CREATED AUTHOR 03/25/2021 [facility] DATE CREATED AUTHOR AUTHOR'S ORGANIZ ATION 06/05/2023 [facility] DATE CREATED AUTHOR AUTHOR'S ORGANIZ ATION 03/28/2025 [facility] DATE CREATED AUTHOR AUTHOR'S ORGANIZ ATION 04/02/2025 [facility] DATE CREATED AUTHOR AUTHOR'S ORGANIZ ATION 04/03/2025 [facility] DATE CREATED AUTHOR AUTHOR'S ORGANIZ ATION 04/06/2025 [facility] Care Teams (unrecognized sec tion and content) Sales Engineer Account Manager Relationship Specialty Start Date End Date Will Forrester MD [address] [place] [address] PCP - General Family Medicine 01/25/21 Sales Engineer Account Manager Relationship Specialty Start Date End Date Will Forrester MD [address] [place] [address] PCP - General Family Medicine 01/25/21 Sales Engineer Account Manager Relationship Specialty Start Date End Date Will Forrester MD [address] [place] [address] PCP - General Family Medicine 01/25/21 Sales Engineer Account Manager Relationship Specialty Start Date End Date Will Forrester MD [address] [place] [address] PCP - General Family Medicine 01/25/21 Team Status: Active Member Role Status Dates Yas Nance APRN MEDICAL ASSISTING INSTRUCTOR-C Primary Care Provider Active Team Status: Inactive Member Role Status Dates Yas Nance APRN MEDICAL ASSISTING INSTRUCTOR-C Primary Care Provider, Attending Provider Active Start: March 13, 2024 End: March 13, 2024 Team Status: Active Member Role Status Dates Yas Nance APRN MEDICAL ASSISTING INSTRUCTOR-C Primary Care Provider, Attending Provider Active Start: March 16, 2024 Team Status: Active Member Role Status Dates Yas Nance APRN MEDICAL ASSISTING INSTRUCTOR-C Primary Care Provider, Attending Provider Active Start: March 17, 2024 Team Status: Inactive Member Role Status Dates Yas Nance APRN MEDICAL ASSISTING INSTRUCTOR-C Primary Care Provider, Attending Provider Active Start: April 23, 2024 End: April 23, 2024 Team Status: Inactive Member Role Status Dates Yas Nance APRN MEDICAL ASSISTING INSTRUCTOR-C Primary Care Provider, Attending Provider Active Start: March 22, 2025 End: March 22, 2025 Team Status: Inactive Member Role Status Dates Yas Nance APRN MEDICAL ASSISTING INSTRUCTOR-C Primary Care Provider, Attending Provider Active Start: March 30, 2025 End: March 30, 2025 Goals (unrecognized section and content) Goals may be documented in a n alternate sectionGoals may be documented in an alternate sectionGoals may be documented in an alternate sectionGoals may be documented in an alternate section No data available for this section No data available for this sectionGoals may be documented in an alternate section FOR RECORDS PERTAINING TO PATIENTS [...] BE BASED ON THE PRIMARY CLINICAL RECORDS. [facility]. provides no warranty or guarantee of the accuracy or completeness of information in this document.
== END 2025-07-16 10:53 | disposition home or self-care (01) ==
PROVIDERS: PCP Nurse Practitioner Family; Visit Provider Nurse Practitioner Family
DX: M54.31 Sciatica, right side (principal); M51.369 Other intervertebral disc degeneration, lumbar region without mention of lumbar back pain or lower extremity pain
CPT/HCPCS: 72110